=== PATIENT | female | born 1980 | race Caucasian/White ===

== ENCOUNTER 2017-03-11 19:57 | Emergency (ER) | payer MEDICAID, OTHER ==
--- NOTE | 2017-03-11 20:08 | EDM.PDOC ---
ED HPI GENERAL MEDICAL PROBLEM - General Chief Complaint: Lower Extremity Injury/Pain Stated Complaint: PAIN RT FOOT/LEG Time Seen by Provider: 03/11/17 20:01 - History of Present Illness INITIAL COMMENTS - FREE TEXT/NARRATIVE: HISTORY AND PHYSICAL: History of present illness: Patient 36-year-old female presents with concern of right foot injury this occurred when a toy was dropped on it by child she denies other trauma or concern Review of systems: As per history of present illness and below otherwise all systems reviewed and negative. Past medical history: As per history of present illness and as reviewed below otherwise noncontributory. Surgical history: As per history of present illness and as reviewed below otherwise noncontributory. Social history: No reported history of drug or alcohol abuse. Family history: As per history of present illness and as reviewed below otherwise noncontributory. Physical exam: HEENT: Atraumatic, normocephalic, pupils reactive, negative for conjunctival pallor or scleral icterus, mucous membranes moist, throat clear, neck supple, nontender, trachea midline. Lungs: Clear to auscultation, breath sounds equal bilaterally, chest nontender. Heart: S1S2, regular, negative for clicks, rubs, or JVD. Abdomen: Soft, nondistended, nontender. Negative for masses or hepatosplenomegaly. Negative for costovertebral tenderness. Pelvis: Stable nontender. Genitourinary: Deferred. Rectal: Deferred. Extremities: Small ecchymosis and tenderness on the dorsal aspect of her right foot noted no crepitation point tenderness CMS neurovascular is unremarkable Neuro: Awake, alert, oriented. Cranial nerves II through XII unremarkable. Cerebellum unremarkable. Motor and sensory unremarkable throughout. Exam nonfocal. Diagnostics: X-ray right foot Therapeutics: None Impression: #1 acute injury right foot (blunt force trauma) Definitive disposition and diagnosis as appropriate pending reevaluation and review of above. Right Feet Pain Score (Numeric/FACES): 6 - Related Data Allergies Allergy/AdvReac Type Severity Reaction Status Date / Time ciprofloxacin [From Cipro] Allergy Other Verified 12/03/14 13:27 ciprofloxacin HCl Allergy Other Verified 12/03/14 13:27 [From Cipro] hydrocodone Allergy Nausea and Verified 12/03/14 13:27 Vomiting lithium [[place]] Allergy Nausea and Verified 12/03/14 13:27 Vomiting lurasidone HCl [From Latuda] Allergy Nausea and Verified 12/03/14 13:27 Vomiting Sulfa (Sulfonamide Allergy Nausea and Verified 12/03/14 13:27 Antibiotics) Vomiting Home Meds: Home Meds QUEtiapine [SEROquel] 50 mg PO DAILY 03/22/14 [History] Ibuprofen [Advil] 1 cap PO Q4H PRN 02/08/15 [History] Colesevelam HCl [Welchol] 625 mg PO DAILY 03/11/17 [History] DULoxetine [Cymbalta] 60 mg PO DAILY 03/11/17 [History] LORazepam 1 mg PO DAILY PRN 03/11/17 [History] Lisdexamfetamine Dimesylate [Vyvanse] 60 mg PO DAILY 03/11/17 [History] Past Medical History - Past Surgical History Other GI Surgeries/Procedures: spleenectomy. pauly fundiplication. d and c with thermal ablation. surgery done 02/03/15 Social & Family History - Tobacco Use Smoking Status *Q: Current Every Day Smoker Years of Tobacco use: 18 Used Tobacco, but Quit: No Second Hand Smoke Exposure: No - Alcohol Use Days Per Week of Alcohol Use: 0 - Recreational Drug Use Recreational Drug Use: No Drug Use in Last 12 Months: No Recreational Drug Type: Reports: Marijuana/Hashish Recreational Drug Use Frequency: Rarely Recreational Drug Last Use: 3 1/2 years Review of Systems - Review of Systems Review Of Systems: ROS reveals no pertinent complaints other than HPI. ED EXAM, GENERAL - Physical Exam Exam: See Below (See dictation) Course - Vital Signs Last Recorded V/S: Last Vital Signs Temp 36.8 C 03/11/17 20:00 Pulse 100 03/11/17 20:00 Resp 19 03/11/17 20:00 BP 110/60 03/11/17 20:00 Pulse Ox 99 03/11/17 20:00 Departure - Departure Time of Disposition: 20:07 Disposition: Home, Self-Care 01 Condition: Good Clinical Impression: Foot injury - Discharge Information Forms: ED Department Discharge Additional Instructions: The following information is given to patients seen in the emergency department who are being discharged to home. This information is to outline your options for follow-up care. We provide all patients seen in our emergency department with a follow-up referral. The need for follow-up, as well as the timing and circumstances, are variable depending upon the specifics of your emergency department visit. If you don't have a primary care physician on staff, we will provide you with a referral. We always advise you to contact your personal physician following an emergency department visit to inform them of the circumstance of the visit and for follow-up with them and/or the need for any referrals to a consulting specialist. The emergency department will also refer you to a specialist when appropriate. This referral assures that you have the opportunity for followup care with a specialist. All of these measure are taken in an effort to provide you with optimal care, which includes your followup. Under all circumstances we always encourage you to contact your private physician who remains a resource for coordinating your care. When calling for followup care, please make the office aware that this follow-up is from your recent emergency room visit. If for any reason you are refused follow-up, please contact the [facility] emergency department at and asked to speak to the emergency department charge nurse. Tylenol/Motrin as directed follow up primary medical doctor 1-2 days return as needed as discussed
[2017-03-11 21:09] VITALS: BP 111/67
--- NOTE | 2017-03-12 13:53 | CR ---
EXAM DATE: 03/11/17 PATIENT'S AGE: 36 Patient: YEE MARLEY Facility: [place], [place] Site . Site : 1980 Study: XRay Extremity Right [id number]/9/2017 8:42:41 PM Ordering Physician: Victorina Hancock Final Report: INDICATION: Trauma. Pain. TECHNIQUE: Two views of the right foot. FINDINGS: There is no evidence for acute fracture, dislocation, erosion, or intrinsic skeletal lesions. IMPRESSION: Negative right foot. Dictated by Los Dave MD @ 03/11/2017 9:10:43 PM Dictated by: Los Dave MD @ 03/11/2017 21:10:51 (Electronic Signature) Report Signed by Proxy. NIKA
== END 2017-03-11 21:12 | disposition home or self-care (01) ==
LOC: MW.ED 19:57
DX: S90.31XA Contusion of right foot, initial encounter (principal); W20.8XXA Other cause of strike by thrown, projected or falling object, initial encounter; Z88.1 Allergy status to other antibiotic agents; Z88.2 Allergy status to sulfonamides; Z88.8 Allergy status to other drugs, medicaments and biological substances; Z88.5 Allergy status to narcotic agent; Z79.899 Other long term (current) drug therapy; F17.210 Nicotine dependence, cigarettes, uncomplicated; Z98.890 Other specified postprocedural states
CPT/HCPCS: 73620-26-RT; 73620-RT; 99282; 99283

== ENCOUNTER 2017-05-03 23:22 | Observation (INO) | payer MEDICAID ==
[2017-05-03] MEDS ORDERED: Sodium Chloride 0.9% 1,000 ML IV ONE (23:32)
--- NOTE | 2017-05-03 23:34 | EDM.PDOC ---
ED HPI GENERAL MEDICAL PROBLEM - General Stated Complaint: TOOK PILLS Time Seen by Provider: 05/03/17 23:33 Source of Information: Reports: Patient, EMS - History of Present Illness INITIAL COMMENTS - FREE TEXT/NARRATIVE: HISTORY AND PHYSICAL: History of present illness: []Patient presents by ambulance after taking 700 mg of Seroquel, this was a miss dosing as patient thought she was taking 25 mg tablets which would be consistent with the usual dose for her however she took 100 mg tablets 7 of them she presents very drowsy but able to be aroused Glascow coma scale is 15 but patient is very groggy after the medication on arrival she was tachycardic 129 December 11 of / she states this is her generally her usual blood pressure however blood pressure has come up with a fluid bolus 200/61 and fluids running at 125 currently patient is stable remains tired No fever nausea vomiting chills sweats no chest pain shortness of breath headache dizziness palpitation no bowel or urine symptoms she denies suicidal homicidal ideation Review of systems: As per history of present illness and below otherwise all systems reviewed and negative. Past medical history: As per history of present illness and as reviewed below otherwise noncontributory. Surgical history: As per history of present illness and as reviewed below otherwise noncontributory. Social history: No reported history of drug or alcohol abuse. Family history: As per history of present illness and as reviewed below otherwise noncontributory. Physical exam: HEENT: Atraumatic, normocephalic, pupils reactive, negative for conjunctival pallor or scleral icterus, mucous membranes moist, throat clear, neck supple, nontender, trachea midline. Lungs: Clear to auscultation, breath sounds equal bilaterally, chest nontender. Heart: S1S2, regular, negative for clicks, rubs, or JVD. Abdomen: Soft, nondistended, nontender. Negative for masses or hepatosplenomegaly. Negative for costovertebral tenderness. Pelvis: Stable nontender. Genitourinary: Deferred. Rectal: Deferred. Extremities: Atraumatic, negative for cords or calf pain. Neurovascular unremarkable. Neuro: Awake, alert, oriented. Cranial nerves II through XII unremarkable. Cerebellum unremarkable. Motor and sensory unremarkable throughout. Exam nonfocal. Diagnostics: []Lab as below EKG Chest 1 view Therapeutics: []Liter normal saline bolus Poison control called they had no concern or recommendation Patient admitted to Dr. da silva due to somnolence and medication effect Impression: []Hyportension-resolved Medication overdose Urine pending at time of admission patient admitted for observation with Dr. Morin Definitive disposition and diagnosis as appropriate pending reevaluation and review of above. - Related Data Allergies Allergy/AdvReac Type Severity Reaction Status Date / Time ciprofloxacin [From Cipro] Allergy Other Verified 05/03/17 23:37 ciprofloxacin HCl Allergy Other Verified 05/03/17 23:37 [From Cipro] hydrocodone Allergy Nausea and Verified 05/03/17 23:37 Vomiting hydromorphone Allergy Nausea and Verified 05/03/17 23:37 Vomiting lithium [[place]] Allergy Nausea and Verified 05/03/17 23:37 Vomiting lurasidone HCl [From Latuda] Allergy Nausea and Verified 05/03/17 23:37 Vomiting Sulfa (Sulfonamide Allergy Nausea and Verified 05/03/17 23:37 Antibiotics) Vomiting sumatriptan [From Imitrex] Allergy Nausea and Verified 05/03/17 23:37 Vomiting Home Meds: Home Meds QUEtiapine [SEROquel] 25 mg PO DAILY 03/22/14 [History] Ibuprofen [Advil] 1 cap PO Q4H PRN 02/08/15 [History] Colesevelam HCl [Welchol] 625 mg PO DAILY 03/11/17 [History] DULoxetine [Cymbalta] 60 mg PO DAILY 03/11/17 [History] LORazepam 1 mg PO DAILY PRN 03/11/17 [History] Lisdexamfetamine Dimesylate [Vyvanse] 60 mg PO DAILY 03/11/17 [History] Past Medical History HEENT History: Reports: None Respiratory History: Reports: Asthma Gastrointestinal History: Reports: None Psychiatric History: Reports: Anxiety, Bipolar - Infectious Disease History Infectious Disease History: Reports: Chicken Pox - Past Surgical History Other GI Surgeries/Procedures: spleenectomy. pauly fundiplication. d and c with thermal ablation. surgery done 02/03/15 Social & Family History - Family History Family Medical History: Noncontributory - Tobacco Use Smoking Status *Q: Current Every Day Smoker Years of Tobacco use: 18 Packs/Tins Daily: 0.5 Used Tobacco, but Quit: No Second Hand Smoke Exposure: No - Caffeine Use Caffeine Use: Reports: Coffee Caffeine Use Comment: 64 ounces/day - Alcohol Use Days Per Week of Alcohol Use: 0 - Recreational Drug Use Recreational Drug Use: No Drug Use in Last 12 Months: No Recreational Drug Type: Reports: Marijuana/Hashish Recreational Drug Use Frequency: Rarely Recreational Drug Last Use: 3 1/2 years ED ROS GENERAL - Review of Systems Review Of Systems: ROS reveals no pertinent complaints other than HPI. ED EXAM, GENERAL - Physical Exam Exam: See Below Course - Vital Signs Last Recorded V/S: Last Vital Signs Temp 36.1 C 05/03/17 23:37 Pulse 97 05/03/17 23:37 Resp 14 05/03/17 23:37 BP 101/64 05/03/17 23:37 Pulse Ox 97 05/03/17 23:37 - Orders/Labs/Meds Orders: Active Orders 24 hr Category Date Time Status EKG Documentation Completion [RC] STAT Care 05/03/17 23:32 Active Chest 1V Frontal [CR] Stat Exams 05/03/17 23:32 Taken DRUG SCREEN, URINE [URCHEM] Stat Lab 05/03/17 23:31 Uncollected UA W/MICROSCOPIC [URIN] Stat Lab 05/03/17 23:31 Uncollected Sodium Chloride 0.9% [Normal Saline] 1,000 ml Med 05/04/17 01:00 Active IV STAT Medication Orders Sodium Chloride (Normal Saline) 1,000 mls @ 125 mls/hr IV STAT PARUL Labs: Laboratory Tests 05/03/17 05/03/17 Range/Units 23:41 23:41 WBC 12.43 H (4.0-11.0) K/uL RBC 3.76 L (4.30-5.90) M/uL Hgb 11.5 L (12.0-16.0) g/dL Hct 33.4 L (36.0-46.0) % MCV 88.8 (80.0-98.0) fL MCH 30.6 (27.0-32.0) pg MCHC 34.4 (31.0-37.0) g/dL RDW Std Deviation 45.5 (28.0-62.0) fl RDW Coeff of Yahir 14 (11.0-15.0) % Plt Count 433 H (150-400) K/uL MPV 9.90 (7.40-12.00) fL Neut % (Auto) 55.4 (48.0-80.0) % Lymph % (Auto) 30.0 (16.0-40.0) % [place] % (Auto) 11.7 (0.0-15.0) % Eos % (Auto) 2.7 (0.0-7.0) % Baso % (Auto) 0.2 (0.0-1.5) % Neut # (Auto) 6.9 H (1.4-5.7) K/uL Lymph # (Auto) 3.7 H (0.6-2.4) K/uL [place] # (Auto) 1.5 H (0.0-0.8) K/uL Eos # (Auto) 0.3 (0.0-0.7) K/uL Baso # (Auto) 0.0 (0.0-0.1) K/uL Nucleated RBC % 0.0 /100WBC Nucleated RBCs # 0 K/uL Sodium 139 (136-146) mmol/L Potassium 3.3 L (3.5-5.1) mmol/L Chloride 109 (98-110) mmol/L Carbon Dioxide 22 (21-31) mmol/L BUN 7 (6.0-23.0) mg/dL Creatinine 0.7 (0.6-1.5) mg/dL Est Cr Clr Drug Dosing 83.93 mL/min Estimated GFR (MDRD) > 60.0 ml/min Glucose 114 H (60-110) mg/dL Calcium 8.9 (8.8-10.8) mg/dL Total Bilirubin 0.3 (0.1-1.5) mg/dL AST 10 (5-40) IU/L ALT 8 (8-54) IU/L Alkaline Phosphatase 116 (40-150) Total Protein 6.4 (6.0-8.0) g/dL Albumin 3.6 (3.5-5.0) g/dL Globulin 2.8 (2.0-3.5) g/dL Albumin/Globulin Ratio 1.3 (1.3-2.8) TSH 3rd Generation 2.71 (0.47-5.0) uIU/mL Salicylates < 5.0 (0-20) mg/dL Acetaminophen < 3.0 ug/mL Ethyl Alcohol < 10.0 mg/dL Meds: Medications Generic Name Dose Route Start Last Admin Trade Name Freq PRN Reason Stop Dose Admin Sodium Chloride 1,000 mls @ 125 mls/hr 05/04/17 01:00 Normal Saline IV STAT PARUL Discontinued Medications Generic Name Dose Route Start Last Admin Trade Name Samson PRN Reason Stop Dose Admin Albuterol/Ipratropium Confirm 05/04/17 00:10 Duoneb 3.0-0.5 Mg/3 Ml Administered 05/04/17 00:11 Dose 3 ml .ROUTE .STK-MED ONE Sodium Chloride 1,000 mls @ 999 mls/hr 05/03/17 23:32 05/03/17 23:50 Normal Saline IV 05/04/17 00:32 999 mls/hr STAT ONE Administration Departure - Departure Time of Disposition: 01:09 Disposition: Refer to Observation Condition: Fair Clinical Impression: Accidental medication overdose - Discharge Information - My Orders Last 24 Hours: My Active Orders 05/03/17 23:31 DRUG SCREEN, URINE [URCHEM] Stat UA W/MICROSCOPIC [URIN] Stat 05/03/17 23:32 EKG Documentation Completion [RC] STAT Chest 1V Frontal [CR] Stat 05/04/17 01:00 Sodium Chloride 0.9% [Normal Saline] 1,000 ml IV STAT - Assessment/Plan Last 24 Hours: My Active Orders 05/03/17 23:31 DRUG SCREEN, URINE [URCHEM] Stat UA W/MICROSCOPIC [URIN] Stat 05/03/17 23:32 EKG Documentation Completion [RC] STAT Chest 1V Frontal [CR] Stat 05/04/17 01:00 Sodium Chloride 0.9% [Normal Saline] 1,000 ml IV STAT
[2017-05-04] MEDS ORDERED: Albuterol/Ipratropium 3.0-0.5 MG/3 ML Neb Soln ONE (00:10)
[2017-05-04 00:33] LABS: ACETAMINOPHEN < 3.0 ug/mL; CHLORIDE,CL 109 mmol/L (98-110); SODIUM,NA 139 mmol/L (136-146)
[2017-05-04] MEDS: Sodium Chloride 0.9% 1,000 ML IV SCH ×2 (01:19→09:10)
[2017-05-04] MEDS ORDERED: Sodium Chloride 0.9% 1,000 ML IV SCH (02:30)
--- NOTE | 2017-05-04 09:44 | CR ---
EXAM DATE: 05/04/17 PATIENT'S AGE: 36 Patient: YEE COHEN Facility: [place], [place] Site . Site : 1980 Study: XRay Chest [id number]/1/2017 12:15:22 AM Ordering Physician: Mikal Baca Final Report: INDICATION: Shortness of breath, chest pain. Accidental overdose. TECHNIQUE: Chest radiograph 1 view COMPARISON: 12/03/2014. FINDINGS: Cardiovascular and mediastinum: The heart silhouette is normal in size and morphology. The mediastinum is normal in appearance. Lungs and pleural spaces: Both lungs are unremarkable in appearance. No sign of pleural effusion seen. No pneumothorax is identified. Bones and soft tissues: Surgical clips project in the left upper abdomen. IMPRESSION: 1. No acute cardiopulmonary disease is seen. Dictated by Rk Burton MD @ 05/04/2017 12:19:15 AM Dictated by: Rk Burton MD @ 05/04/2017 00:19:20 (Electronic Signature) Report Signed by Proxy. MOHAWK VALLEY HEALTH SYSTEMCarlin
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
[2017-05-04] MEDS ORDERED: Acetaminophen 325 MG Tab PO ONE (13:20)
[2017-05-04 16:16] VITALS: BP 96/66
== END 2017-05-04 15:35 | disposition home or self-care (01) ==
LOC: MW.ED 23:22 → MW.MS 05-04 01:10
PROVIDERS: ADMIT Internal Medicine; ATTEND Internal Medicine
DX: T43.591A Poisoning by other antipsychotics and neuroleptics, accidental (unintentional), initial encounter (principal); F31.9 Bipolar disorder, unspecified; F41.9 Anxiety disorder, unspecified; J45.909 Unspecified asthma, uncomplicated; G35 Multiple sclerosis; E89.0 Postprocedural hypothyroidism; F17.210 Nicotine dependence, cigarettes, uncomplicated; Z88.1 Allergy status to other antibiotic agents; Z88.2 Allergy status to sulfonamides; Z88.5 Allergy status to narcotic agent; Z88.8 Allergy status to other drugs, medicaments and biological substances; Z79.899 Other long term (current) drug therapy; Z90.81 Acquired absence of spleen
CPT/HCPCS: 36415; 71010; 80053; 80305; 81001; 84443; 85025; 93005; 96360; 96361; 99285; A9270; G0378; G0480; J7040; 99283

== ENCOUNTER 2019-01-01 19:50 | Emergency (ER) | payer SELFPAY ==
[2019-01-01] MEDS ORDERED: Albuterol/Ipratropium 3.0-0.5 MG/3 ML Neb Soln NEB ONE (20:40)
[2019-01-01] MEDS ORDERED: methylPREDNISolone Sodium Succinate 125 MG/2 ML SDV IM ONE (20:40)
[2019-01-01 21:01] LABS: CHLORIDE,CL 104 mmol/L (98-107); SODIUM,NA 137 mmol/L (136-145)
[2019-01-01] MEDS ORDERED: Levofloxacin 500 MG Tab PO ONE (21:42)
--- NOTE | 2019-01-01 21:42 | EDM.PDOC ---
ED HPI GENERAL MEDICAL PROBLEM - General Chief Complaint: Respiratory Problem Stated Complaint: COUGHING AND CONGESTION Time Seen by Provider: 01/01/19 21:42 Source of Information: Reports: Patient - History of Present Illness INITIAL COMMENTS - FREE TEXT/NARRATIVE: HISTORY AND PHYSICAL: History of present illness: [Patient with long smoking history presents with sinus pain and pressure nasal discharge and secondary complaint of dysuria and flank pain in the right flank pain 1 out of 10 nonradiating no nausea vomiting Patient complains of subjective fever and chills sweats or diaphoresis no chest pain or shortness of breath breathing is nonlabored and can speak clearly in full sentences ] Review of systems: As per history of present illness and below otherwise all systems reviewed and negative. Past medical history: As per history of present illness and as reviewed below otherwise noncontributory. Surgical history: As per history of present illness and as reviewed below otherwise noncontributory. Social history: No reported history of drug or alcohol abuse. Family history: As per history of present illness and as reviewed below otherwise noncontributory. Physical exam: HEENT: Atraumatic, normocephalic, pupils reactive, negative for conjunctival pallor or scleral icterus, mucous membranes moist, throat clear, neck supple, nontender, trachea midline. Anus pain left greater than right maxillary sinus Lungs: Clear to auscultation, breath sounds equal bilaterally, chest nontender. Heart: S1S2, regular, negative for clicks, rubs, or JVD. Abdomen: Soft, nondistended, nontender. Negative for masses or hepatosplenomegaly. Negative for costovertebral tenderness. Pelvis: Stable nontender. Genitourinary: Deferred. Rectal: Deferred. Extremities: Atraumatic, negative for cords or calf pain. Neurovascular unremarkable. Neuro: Awake, alert, oriented. Cranial nerves II through XII unremarkable. Cerebellum unremarkable. Motor and sensory unremarkable throughout. Exam nonfocal. Diagnostics: [TBC CMP UA Chest 2 views ] Therapeutics: [DuoNeb Solu-Medrol 125 IM Levaquin 500 by mouth daily #10 no refill HFA Medrol Dosepak ] Impression: []sinusitis Bronchitis UTI Definitive disposition and diagnosis as appropriate pending reevaluation and review of above. chest with breathing/coughing Pain Score (Numeric/FACES): 7 - Related Data Allergies Allergy/AdvReac Type Severity Reaction Status Date / Time ciprofloxacin [From Cipro] Allergy Other Verified 01/01/19 20:00 ciprofloxacin HCl Allergy Other Verified 01/01/19 20:00 [From Cipro] hydrocodone Allergy Nausea and Verified 01/01/19 20:00 Vomiting hydromorphone Allergy Nausea and Verified 01/01/19 20:00 Vomiting lithium [[place]] Allergy Nausea and Verified 01/01/19 20:00 Vomiting lurasidone HCl [From Latuda] Allergy Nausea and Verified 01/01/19 20:00 Vomiting Sulfa (Sulfonamide Allergy Nausea and Verified 01/01/19 20:00 Antibiotics) Vomiting sumatriptan [From Imitrex] Allergy Nausea and Verified 01/01/19 20:00 Vomiting Home Meds: Home Meds Ibuprofen [Advil] 1 cap PO Q4H PRN 02/08/15 [History] Escitalopram [Lexapro] 10 mg PO DAILY 01/01/19 [History] lamoTRIgine [Lamictal] 100 mg PO BEDTIME 01/01/19 [History] Past Medical History HEENT History: Reports: None Cardiovascular History: Reports: None Respiratory History: Reports: Asthma Gastrointestinal History: 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 pauly fundiplication. d and c with thermal ablation. 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 Recreational Drug Use Frequency: Daily - Living Situation & Occupation Living situation: Reports: with Significant Other ED ROS GENERAL - Review of Systems Review Of Systems: See Below ED EXAM, GENERAL - Physical Exam Exam: See Below Course - Vital Signs Last Recorded V/S: Last Vital Signs Temp 97.9 F 01/01/19 19:57 Pulse 121 H 01/01/19 19:57 Resp 20 01/01/19 19:57 BP 107/65 01/01/19 19:57 Pulse Ox 95 01/01/19 21:00 - Orders/Labs/Meds Orders: Active Orders 24 hr Category Date Time Status RT Aerosol Therapy [RC] ASDIRECTED Care 01/01/19 20:40 Active Chest 1V Frontal [CR] Stat Exams 01/01/19 20:38 Taken CULTURE BLOOD [BC] Stat Lab 01/01/19 21:13 Received CULTURE BLOOD [BC] Stat Lab 01/01/19 21:13 Received CULTURE URINE [RM] Stat Lab 01/01/19 20:20 Received Blood Culture x2 Reflex Set [OM.PC] Stat Oth 01/01/19 20:38 Ordered Labs: Laboratory Tests 01/01/19 01/01/19 01/01/19 Range/Units 20:20 20:20 20:28 WBC 12.19 H (4.0-11.0) K/uL RBC 3.94 L (4.30-5.90) M/uL Hgb 11.9 L (12.0-16.0) g/dL Hct 36.6 (36.0-46.0) % MCV 92.9 (80.0-98.0) fL MCH 30.2 (27.0-32.0) pg MCHC 32.5 (31.0-37.0) g/dL RDW Std Deviation 47.9 (28.0-62.0) fl RDW Coeff of Yahir 14 (11.0-15.0) % Plt Count 417 H (150-400) K/uL MPV 9.70 (7.40-12.00) fL Neut % (Auto) 66.5 (48.0-80.0) % Lymph % (Auto) 19.3 (16.0-40.0) % Ray % (Auto) 12.5 (0.0-15.0) % Eos % (Auto) 1.5 (0.0-7.0) % Baso % (Auto) 0.2 (0.0-1.5) % Neut # (Auto) 8.1 H (1.4-5.7) K/uL Lymph # (Auto) 2.4 (0.6-2.4) K/uL Ray # (Auto) 1.5 H (0.0-0.8) K/uL Eos # (Auto) 0.2 (0.0-0.7) K/uL Baso # (Auto) 0.0 (0.0-0.1) K/uL Nucleated RBC % 0.0 /100WBC Nucleated RBCs # 0 K/uL Lactate (0.20-2.00) mmol/L Sodium (136-145) mmol/L Potassium (3.5-5.1) mmol/L Chloride (98-107) mmol/L Carbon Dioxide (21.0-32.0) mmol/L BUN (7.0-18.0) mg/dL Creatinine (0.6-1.0) mg/dL Est Cr Clr Drug Dosing mL/min Estimated GFR (MDRD) ml/min Glucose (74-106) mg/dL Calcium (8.5-10.1) mg/dL Total Bilirubin (0.2-1.0) mg/dL AST (15-37) IU/L ALT (14-63) IU/L Alkaline Phosphatase (46-116) U/L Total Protein (6.4-8.2) g/dL Albumin (3.4-5.0) g/dL Globulin (2.6-4.0) g/dL Albumin/Globulin Ratio (0.9-1.6) Urine Color ORANGE Urine Appearance CLOUDY Urine pH 6.5 (5.0-8.0) Ur Specific [place] 1.020 (1.001-1.035) Urine Protein >=300 H (NEGATIVE) mg/dL Urine Glucose (UA) 500 H (NEGATIVE) mg/dL Urine Ketones 15 H (NEGATIVE) mg/dL Urine Occult Blood TRACE-INTACT H (NEGATIVE) Urine Nitrite POSITIVE H (NEGATIVE) Urine Bilirubin SMALL H (NEGATIVE) Urine Ictotest POSITIVE Urine Urobilinogen >=8.0 H (<2.0) EU/dL Ur Leukocyte Esterase MODERATE H (NEGATIVE) Urine RBC 0-3 (0-2/HPF) Urine WBC 28-35 (0-5/HPF) Ur Squamous Epith Cells FEW Urine Bacteria 3+ H (NEGATIVE) Urine Mucus LIGHT (NONE-MOD) Urine HCG, Qual NEGATIVE (NEGATIVE) 01/01/19 01/01/19 Range/Units 20:28 20:38 WBC (4.0-11.0) K/uL RBC (4.30-5.90) M/uL Hgb (12.0-16.0) g/dL Hct (36.0-46.0) % MCV (80.0-98.0) fL MCH (27.0-32.0) pg MCHC (31.0-37.0) g/dL RDW Std Deviation (28.0-62.0) fl RDW Coeff of Yahir (11.0-15.0) % Plt Count (150-400) K/uL MPV (7.40-12.00) fL Neut % (Auto) (48.0-80.0) % Lymph % (Auto) (16.0-40.0) % Ray % (Auto) (0.0-15.0) % Eos % (Auto) (0.0-7.0) % Baso % (Auto) (0.0-1.5) % Neut # (Auto) (1.4-5.7) K/uL Lymph # (Auto) (0.6-2.4) K/uL Ray # (Auto) (0.0-0.8) K/uL Eos # (Auto) (0.0-0.7) K/uL Baso # (Auto) (0.0-0.1) K/uL Nucleated RBC % /100WBC Nucleated RBCs # K/uL Lactate 1.2 (0.20-2.00) mmol/L Sodium 137 (136-145) mmol/L Potassium 3.6 (3.5-5.1) mmol/L Chloride 104 (98-107) mmol/L Carbon Dioxide 24.5 (21.0-32.0) mmol/L BUN 10 (7.0-18.0) mg/dL Creatinine 0.8 (0.6-1.0) mg/dL Est Cr Clr Drug Dosing 71.95 mL/min Estimated GFR (MDRD) > 60.0 ml/min Glucose 109 H (74-106) mg/dL Calcium 8.7 (8.5-10.1) mg/dL Total Bilirubin 0.2 (0.2-1.0) mg/dL AST 10 L (15-37) IU/L ALT 10 L (14-63) IU/L Alkaline Phosphatase 95 (46-116) U/L Total Protein 6.8 (6.4-8.2) g/dL Albumin 3.0 L (3.4-5.0) g/dL Globulin 3.8 (2.6-4.0) g/dL Albumin/Globulin Ratio 0.8 L (0.9-1.6) Urine Color Urine Appearance Urine pH (5.0-8.0) Ur Specific [place] (1.001-1.035) Urine Protein (NEGATIVE) mg/dL Urine Glucose (UA) (NEGATIVE) mg/dL Urine Ketones (NEGATIVE) mg/dL Urine Occult Blood (NEGATIVE) Urine Nitrite (NEGATIVE) Urine Bilirubin (NEGATIVE) Urine Ictotest Urine Urobilinogen (<2.0) EU/dL Ur Leukocyte Esterase (NEGATIVE) Urine RBC (0-2/HPF) Urine WBC (0-5/HPF) Ur Squamous Epith Cells Urine Bacteria (NEGATIVE) Urine Mucus (NONE-MOD) Urine HCG, Qual (NEGATIVE) Meds: Medications Discontinued Medications Generic Name Dose Route Start Last Admin Trade Name Freq PRN Reason Stop Dose Admin Albuterol/Ipratropium 3 ml 01/01/19 20:40 01/01/19 21:00 Duoneb 3.0-0.5 Mg/3 Ml NEB 01/01/19 20:41 3 ml ONETIME ONE Administration Levofloxacin 500 mg 01/01/19 21:42 Levaquin PO 01/01/19 21:43 ONETIME ONE Methylprednisolone Sodium Succinate 125 mg 01/01/19 20:40 01/01/19 20:52 Solu-Medrol IM 01/01/19 20:41 125 mg ONETIME ONE Administration Departure - Departure Time of Disposition: 21:48 Disposition: Home, Self-Care 01 Condition: Good Clinical Impression: Sinusitis, Acute bronchiolitis, UTI (urinary tract infection) - Discharge Information Referrals: Ranjeet,Anna A, CHEMIC MANGLER [Primary Care Provider] - Forms: ED Department Discharge Additional Instructions: The following information is given to patients seen in the emergency department who are being discharged to home. This information is to outline your options for follow-up care. We provide all patients seen in our emergency department with a follow-up referral. The need for follow-up, as well as the timing and circumstances, are variable depending upon the specifics of your emergency department visit. If you don't have a primary care physician on staff, we will provide you with a referral. We always advise you to contact your personal physician following an emergency department visit to inform them of the circumstance of the visit and for follow-up with them and/or the need for any referrals to a consulting specialist. The emergency department will also refer you to a specialist when appropriate. This referral assures that you have the opportunity for follow-up care with a specialist. All of these measure are taken in an effort to provide you with optimal care, which includes your follow-up. Under all circumstances we always encourage you to contact your private physician who remains a resource for coordinating your care. When calling for follow-up care, please make the office aware that this follow-up is from your recent emergency room visit. If for any reason you are refused follow-up, please contact the [facility] emergency department at and asked to speak to the emergency department charge nurse. - My Orders Last 24 Hours: My Active Orders 01/01/19 20:38 Chest 1V Frontal [CR] Stat Blood Culture x2 Reflex Set [OM.PC] Stat 01/01/19 20:40 RT Aerosol Therapy [RC] ASDIRECTED 01/01/19 21:13 CULTURE BLOOD [BC] Stat CULTURE BLOOD [BC] Stat - Assessment/Plan Last 24 Hours: My Active Orders 01/01/19 20:38 Chest 1V Frontal [CR] Stat Blood Culture x2 Reflex Set [OM.PC] Stat 01/01/19 20:40 RT Aerosol Therapy [RC] ASDIRECTED 01/01/19 21:13 CULTURE BLOOD [BC] Stat CULTURE BLOOD [BC] Stat
[2019-01-01 21:57] VITALS: BP 97/65
--- NOTE | 2019-01-01 22:26 | CR ---
INDICATION: Cough for 1 week. COMPARISON: 05/04/2017 FINDINGS: An erect single view of the chest was obtained at 21 28 hours. The lungs remain clear. No focal or diffuse infiltrates are present. The heart remains normal in size. The mediastinum is normal in appearance. The osseous structures are normal in appearance for the patient`s age. Again seen are a few surgical clips in the left upper quadrant. IMPRESSION: Normal chest single view. Dictated by Fred Foster MD @ Jan 01 2019 10:23PM Signed by Dr. Fred Foster @ Jan 01 2019 10:25PM
== END 2019-01-01 21:57 | disposition home or self-care (01) ==
LOC: MW.ED 19:50
DX: J21.9 Acute bronchiolitis, unspecified (principal); J40 Bronchitis, not specified as acute or chronic; J32.9 Chronic sinusitis, unspecified; N39.0 Urinary tract infection, site not specified; F41.9 Anxiety disorder, unspecified; F17.210 Nicotine dependence, cigarettes, uncomplicated; Z88.1 Allergy status to other antibiotic agents; Z88.6 Allergy status to analgesic agent; Z88.2 Allergy status to sulfonamides; Z88.8 Allergy status to other drugs, medicaments and biological substances; Z79.899 Other long term (current) drug therapy
CPT/HCPCS: 36415; 71045; 80053; 81001; 81025; 83605; 85025; 87040; 87086; 87088; 87186; 94640; 96372; 99284; A9270; J2930; J7620-GY

== ENCOUNTER 2019-05-19 16:03 | Emergency (ER) | payer SELFPAY ==
[2019-05-19] MEDS ORDERED: Metoclopramide 10 MG/2 ML SDV IV ONE (16:33)
[2019-05-19] MEDS ORDERED: Ketorolac 30 MG/ML SDV IVPUSH ONE (16:33)
[2019-05-19] MEDS ORDERED: diphenhydrAMINE 50 MG/ML SDV IVPUSH ONE (16:33)
[2019-05-19] MEDS ORDERED: Ondansetron 4 MG/2 ML SDV IVPUSH ONE (16:33)
[2019-05-19] MEDS ORDERED: Sodium Chloride 0.9% 1,000 ML IV ONE (16:33)
[2019-05-19 16:36] VITALS: BP 103/67; PULSE 84
--- NOTE | 2019-05-19 16:41 | EDM.PDOC ---
ED HPI GENERAL MEDICAL PROBLEM - General Chief Complaint: Headache Stated Complaint: HEADACHE Time Seen by Provider: 05/19/19 16:06 Source of Information: Reports: Patient History Limitations: Reports: No Limitations - History of Present Illness INITIAL COMMENTS - FREE TEXT/NARRATIVE: HISTORY AND PHYSICAL: History of present illness: Patient is a 38-year-old female, with a known history of migraines, who presents to the ED today for a migraine x 4 days. Patient states she is allergic to Imitrex but has been tried for her past migraines so does not have a rescue medication on board. Patient states she's tried [id number] Excedrin without relief of symptoms. Patient states her migraine today is typical of her usual migraines involving photosensitivity and slight nausea. Patient denies any change from her typical migraine and denies any other associative symptoms. Patient denies fever, chills, chest pain, shortness of breath, or cough. Denies neck stiff ness, change in vision, syncope, or near syncope. Denies vomiting, abdominal pain, diarrhea, constipation, or dysuria. Has not noted any blood in urine or stool. Patient has been eating and drinking appropriately. Review of systems: As per history of present illness and below otherwise all systems reviewed and negative. Past medical history: As per history of present illness and as reviewed below otherwise noncontributory. Surgical history: As per history of present illness and as reviewed below otherwise noncontributory. Social history: See social history for further information Family history: As per history of present illness and as reviewed below otherwise noncontributory. Physical exam: General: Patient is alert, oriented, and in no acute distress. Patient laying comfortably on exam table. HEENT: Atraumatic, normocephalic, pupils equal and reactive bilaterally, negative for conjunctival pallor or scleral icterus, mucous membranes moist, TMs normal bilaterally, throat clear, neck supple, nontender, trachea midline. No drooling or trismus noted. No meningeal signs. No hot potato voice noted. Lungs: Clear to auscultation, breath sounds equal bilaterally, chest nontender. Heart: S1S2, regular rate and rhythm without overt murmur Abdomen: Soft, nondistended, nontender. Negative for masses or hepatosplenomegaly. Negative for costovertebral tenderness. Pelvis: Stable nontender. Genitourinary: Deferred. Rectal: Deferred. Skin: Intact, warm, dry. No lesions or rashes noted. Extremities: Atraumatic, negative for cords or calf pain. Neurovascular unremarkable. Neuro: Awake, alert, oriented. Cranial nerves II through XII unremarkable. Cerebellum unremarkable. Motor and sensory unremarkable throughout. Exam nonfocal. Notes: Patient expresses resolution of her migraine today in the ED with therapeutics. Discussed the importance for follow-up with her primary care provider or neurologist. Voices understanding and is agreeable to plan of care. Denies any further questions or concerns at this time. Diagnostics: None Therapeutics: Saline, Toradol, Zofran, Benadryl, Reglan Prescription: None Impression: Headache, resolved H/O migraine disorder Plan: 1. Encourage small but frequent sips of fluid to prevent dehydration. 2. You can alternate ibuprofen and Tylenol as directed for pain and discomfort. 3. Follow up with her primary care provider or neurologist as discussed. Return to the ED as needed and as discussed. Definitive disposition and diagnosis as appropriate pending reevaluation and review of above. Headache Pain Score (Numeric/FACES): 10 - Related Data Allergies Allergy/AdvReac Type Severity Reaction Status Date / Time ciprofloxacin [From Cipro] Allergy Other Verified 05/19/19 16:30 ciprofloxacin HCl Allergy Other Verified 05/19/19 16:30 [From Cipro] hydrocodone Allergy Nausea and Verified 05/19/19 16:30 Vomiting hydromorphone Allergy Nausea and Verified 05/19/19 16:30 Vomiting lithium [[place]] Allergy Nausea and Verified 05/19/19 16:30 Vomiting lurasidone HCl [From Latuda] Allergy Nausea and Verified 05/19/19 16:30 Vomiting Sulfa (Sulfonamide Allergy Nausea and Verified 05/19/19 16:30 Antibiotics) Vomiting sumatriptan [From Imitrex] Allergy Nausea and Verified 05/19/19 16:30 Vomiting Home Meds: Home Meds Escitalopram [Lexapro] 10 mg PO DAILY 01/01/19 [History] lamoTRIgine [Lamictal] 100 mg PO BEDTIME 01/01/19 [History] Past Medical History HEENT History: Reports: None Cardiovascular History: Reports: None Respiratory History: Reports: Asthma Gastrointestinal History: 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 pauly fundiplication. d and c with thermal ablation. surgery done 02/03/15 Female Surgical History: Reports: Section Social & Family History - Family History Family Medical History: Noncontributory - Caffeine Use Caffeine Use: Reports: Coffee, Energy Drinks, Soda, Tea Caffeine Use Comment: 64 ounces/day - Living Situation & Occupation Living situation: Reports: with Significant Other ED ROS GENERAL - Review of Systems Review Of Systems: ROS reveals no pertinent complaints other than HPI. ED EXAM, GENERAL - Physical Exam Exam: See Below (See dictation) Course - Vital Signs Last Recorded V/S: Last Vital Signs Temp 36.6 C 05/19/19 16:31 Pulse 84 05/19/19 16:31 Resp 18 05/19/19 16:31 BP 103/67 05/19/19 16:31 Pulse Ox 98 05/19/19 16:31 - Orders/Labs/Meds Orders: Active Orders 24 hr Category Date Time Status EKG Documentation Completion [RC] STAT Care 05/19/19 16:34 Active Sodium Chloride 0.9% [Normal Saline] 1,000 ml Med 05/19/19 16:33 Active IV STAT Medication Orders Sodium Chloride (Normal Saline) 1,000 mls @ 999 mls/hr IV STAT ONE Stop: 05/19/19 17:33 Last Admin: 05/19/19 16:59 Dose: 999 mls/hr Meds: Medications Generic Name Dose Route Start Last Admin Trade Name Freq PRN Reason Stop Dose Admin Sodium Chloride 1,000 mls @ 999 mls/hr 05/19/19 16:33 05/19/19 16:59 Normal Saline IV 05/19/19 17:33 999 mls/hr STAT ONE Administration Discontinued Medications Generic Name Dose Route Start Last Admin Trade Name Freq PRN Reason Stop Dose Admin Diphenhydramine HCl 50 mg 05/19/19 16:33 09/16/19 17:02 Benadryl IVPUSH 05/19/19 16:34 50 mg ONETIME ONE Administration Ketorolac Tromethamine 30 mg 05/19/19 16:33 05/19/19 17:01 Toradol IVPUSH 05/19/19 16:34 30 mg ONETIME ONE Administration Metoclopramide HCl 10 mg 05/19/19 16:33 05/19/19 17:03 Reglan IV 05/19/19 16:34 10 mg ONETIME ONE Administration Ondansetron HCl 4 mg 05/19/19 16:33 05/19/19 16:59 Zofran IVPUSH 05/19/19 16:34 4 mg ONETIME ONE Administration Departure - Departure Time of Disposition: 17:31 Disposition: Home, Self-Care 01 Clinical Impression: History of migraine Headache Qualifiers: Headache type: unspecified Headache chronicity pattern: acute headache Intractability: not intractable Qualified Code(s): R51 - Headache - Discharge Information Referrals: PCP,None [Primary Care Provider] - Forms: ED Department Discharge Additional Instructions: The following information is given to patients seen in the emergency department who are being discharged to home. This information is to outline your options for follow-up care. We provide all patients seen in our emergency department with a follow-up referral. The need for follow-up, as well as the timing and circumstances, are variable depending upon the specifics of your emergency department visit. If you don't have a primary care physician on staff, we will provide you with a referral. We always advise you to contact your personal physician following an emergency department visit to inform them of the circumstance of the visit and for follow-up with them and/or the need for any referrals to a consulting specialist. The emergency department will also refer you to a specialist when appropriate. This referral assures that you have the opportunity for follow-up care with a specialist. All of these measure are taken in an effort to provide you with optimal care, which includes your follow-up. Under all circumstances we always encourage you to contact your private physician who remains a resource for coordinating your care. When calling for follow-up care, please make the office aware that this follow-up is from your recent emergency room visit. If for any reason you are refused follow-up, please contact the [facility] Emergency Department at and asked to speak to the emergency department charge nurse. LAILA [facility] [address] [place] [address] [facility] [address] [place] [address] [facility] - Neurology Professional Building [address] [facility], [address] [place] [address] 1. Encourage small but frequent sips of fluid to prevent dehydration. 2. You can alternate ibuprofen and Tylenol as directed for pain and discomfort. 3. Follow up with her primary care provider or neurologist as discussed. Return to the ED as needed and as discussed. - My Orders Last 24 Hours: My Active Orders 05/19/19 16:33 Sodium Chloride 0.9% [Normal Saline] 1,000 ml IV STAT 05/19/19 16:34 EKG Documentation Completion [RC] STAT - Assessment/Plan Last 24 Hours: My Active Orders 05/19/19 16:33 Sodium Chloride 0.9% [Normal Saline] 1,000 ml IV STAT 05/19/19 16:34 EKG Documentation Completion [RC] STAT
== END 2019-05-19 17:56 | disposition home or self-care (01) ==
LOC: MW.ED 16:03
DX: R51 Headache (principal); F41.9 Anxiety disorder, unspecified; Z88.5 Allergy status to narcotic agent; Z88.2 Allergy status to sulfonamides; Z88.1 Allergy status to other antibiotic agents; Z88.8 Allergy status to other drugs, medicaments and biological substances; Z79.899 Other long term (current) drug therapy
CPT/HCPCS: 93005; 96361; 96374; 96375; 99283; J1200; J1885; J2405; J2765; J7040

== ENCOUNTER 2019-07-08 11:50 | Emergency (ER) | payer SELFPAY ==
[2019-07-08] MEDS ORDERED: Ketorolac 30 MG/ML SDV IM ONE (12:01)
[2019-07-08 12:04] VITALS: BP 122/78; PULSE 81
--- NOTE | 2019-07-08 12:39 | EDM.PDOC ---
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 She also believes she may be . She denies any recent trauma,urinary incontinence , numbness or tingling, difficulty walking, no vaginal bleeding or abdominal cramping. Review of systems: As per history of present illness and below otherwise all systems reviewed and negative. Past medical history: As per history of present illness and as reviewed below otherwise noncontributory. Surgical history: As per history of present illness and as reviewed below otherwise noncontributory. Social history: No reported history of drug or alcohol abuse. Family history: As per history of present illness and as reviewed below otherwise noncontributory. Physical exam: General: Well developed, well nourished in NAD HEENT: Atraumatic, normocephalic, pupils reactive, negative for conjunctival pallor or scleral icterus, mucous membranes moist, throat clear, neck supple, nontender, trachea midline. Lungs: Clear to auscultation, breath sounds equal bilaterally, chest nontender. Heart: S1S2, regular, negative for clicks, rubs, or JVD. Abdomen: NABS, Soft, nondistended, nontender. Negative for masses or hepatosplenomegaly. Negative for costovertebral tenderness. Pelvis: Stable nontender. Genitourinary: Deferred. Rectal: Deferred. Extremities: Atraumatic, negative for cords or calf pain. Neurovascular unremarkable. Neuro: Awake, alert, oriented. Cranial nerves II through XII unremarkable. Cerebellum unremarkable. Motor and sensory unremarkable throughout. Exam nonfocal. straight leg raise negative, patellar and Achilles reflexes normal bilaterally equal, his great toes Skin:warm and dry Diagnostics: urine negative Therapeutics: declined pain meds ED Course: stable Impression: low back pain Prescriptions: none Plan: Take meds as directed, follow up with your primary care physician, return to ER if symptoms worsen or change. Definitive disposition and diagnosis as appropriate pending reevaluation and review of above. back Pain Score (Numeric/FACES): 6 - Related Data Allergies Allergy/AdvReac Type Severity Reaction Status Date / Time ciprofloxacin [From Cipro] Allergy Other Verified 07/08/19 12:02 ciprofloxacin HCl Allergy Other Verified 07/08/19 12:02 [From Cipro] hydrocodone Allergy Nausea and Verified 07/08/19 12:02 Vomiting hydromorphone Allergy Nausea and Verified 07/08/19 12:02 Vomiting lithium [[place]] Allergy Nausea and Verified 07/08/19 12:02 Vomiting lurasidone HCl [From Latuda] Allergy Nausea and Verified 07/08/19 12:02 Vomiting Sulfa (Sulfonamide Allergy Nausea and Verified 07/08/19 12:02 Antibiotics) Vomiting sumatriptan [From Imitrex] Allergy Nausea and Verified 07/08/19 12:02 Vomiting Home Meds: Home Meds . [No Known Home Meds] 07/08/19 [History] Past Medical History HEENT History: Reports: None Cardiovascular History: Reports: None Respiratory History: Reports: Asthma Gastrointestinal History: 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 pauly fundiplication. d and c with thermal ablation. surgery done 02/03/15 Female Surgical History: Reports: Section Social & Family History - Family History Family Medical History: Noncontributory - Tobacco Use Smoking Status *Q: Current Every Day Smoker Years of Tobacco use: 20 Packs/Tins Daily: 0.5 - Caffeine Use Caffeine Use: Reports: Coffee, Energy Drinks, Soda, Tea Caffeine Use Comment: 64 ounces/day - Recreational Drug Use Recreational Drug Use: Yes Drug Use in Last 12 Months: Yes Recreational Drug Type: Reports: Methamphetamine Recreational Drug Use Frequency: Not Used In Over 3 Months - Living Situation & Occupation Living situation: Reports: with Significant Other ED ROS GENERAL - Review of Systems Review Of Systems: See Below ED EXAM,LOWER BACK PAIN/INJURY - Physical Exam Exam: See Below Course - Vital Signs Last Recorded V/S: Last Vital Signs Temp 97.3 F 07/08/19 11:58 Pulse 81 07/08/19 11:58 Resp 18 07/08/19 11:58 BP 122/78 07/08/19 11:58 Pulse Ox 98 07/08/19 11:58 - Orders/Labs/Meds Labs: Laboratory Tests 07/08/19 07/08/19 Range/Units 11:55 11:55 Urine Color YELLOW Urine Appearance HAZY Urine pH 6.0 (5.0-8.0) Ur Specific [place] 1.020 (1.001-1.035) Urine Protein NEGATIVE (NEGATIVE) mg/dL Urine Glucose (UA) NEGATIVE (NEGATIVE) mg/dL Urine Ketones NEGATIVE (NEGATIVE) mg/dL Urine Occult Blood SMALL H (NEGATIVE) Urine Nitrite NEGATIVE (NEGATIVE) Urine Bilirubin NEGATIVE (NEGATIVE) Urine Urobilinogen 0.2 (<2.0) EU/dL Ur Leukocyte Esterase NEGATIVE (NEGATIVE) Urine RBC 0-2 (0-2/HPF) Urine WBC 0-2 (0-5/HPF) Ur Epithelial Cells FEW (NONE-FEW) Urine Bacteria FEW (NEGATIVE) Urine Trichomonas PRESENT (NEGATIVE) Urine Yeast FEW Urine HCG, Qual NEGATIVE (NEGATIVE) Meds: Medications Discontinued Medications Generic Name Dose Route Start Last Admin Trade Name Freq PRN Reason Stop Dose Admin Ketorolac Tromethamine 30 mg 07/08/19 12:01 07/08/19 12:13 Toradol IM 07/08/19 12:02 Not Given ONETIME ONE Departure - Departure Time of Disposition: 13:00 Disposition: Home, Self-Care 01 Condition: Good Clinical Impression: Low back pain Qualifiers: Chronicity: acute Back pain laterality: bilateral Sciatica presence: without sciatica Qualified Code(s): M54.5 - Low back pain - Discharge Information *PRESCRIPTION DRUG MONITORING PROGRAM REVIEWED*: Not Applicable *COPY OF PRESCRIPTION DRUG MONITORING REPORT IN PATIENT MELINA: Not Applicable Instructions: Acute Back Pain, Adult Referrals: PCP,None [Primary Care Provider] - Forms: ED Department Discharge Additional Instructions: The following information is given to patients seen in the emergency department who are being discharged to home. This information is to outline your options for follow-up care. We provide all patients seen in our emergency department with a follow-up referral. The need for follow-up, as well as the timing and circumstances, are variable depending upon the specifics of your emergency department visit. If you don't have a primary care physician on staff, we will provide you with a referral. We always advise you to contact your personal physician following an emergency department visit to inform them of the circumstance of the visit and for follow-up with them and/or the need for any referrals to a consulting specialist. The emergency department will also refer you to a specialist when appropriate. This referral assures that you have the opportunity for follow-up care with a specialist. All of these measure are taken in an effort to provide you with optimal care, which includes your follow-up. Under all circumstances we always encourage you to contact your private physician who remains a resource for coordinating your care. When calling for follow-up care, please make the office aware that this follow-up is from your recent emergency room visit. If for any reason you are refused follow-up, please contact the [facility] Emergency Department at and asked to speak to the emergency department charge nurse. Take meds as directed, follow up with your primary care physician, return to ER if symptoms worsen or change. [facility] [address] [place] [id number]
== END 2019-07-08 13:09 | disposition home or self-care (01) ==
LOC: MW.ED 11:50
DX: M54.5 Low back pain (principal); J45.909 Unspecified asthma, uncomplicated; F17.210 Nicotine dependence, cigarettes, uncomplicated; Z88.1 Allergy status to other antibiotic agents; Z88.2 Allergy status to sulfonamides; Z88.5 Allergy status to narcotic agent; Z88.8 Allergy status to other drugs, medicaments and biological substances
CPT/HCPCS: 81001; 81025; 99282; 99283

== ENCOUNTER 2019-09-12 22:40 | Emergency (ER) | payer SELFPAY ==
[2019-09-12 23:06] VITALS: BP 102/61; PULSE 89
--- NOTE | 2019-09-13 00:19 | EDM.PDOC ---
ED HPI GENERAL MEDICAL PROBLEM - General Chief Complaint: Fever Stated Complaint: FLU SYMPTOMS Time Seen by Provider: 09/13/19 00:10 Source of Information: Reports: Patient History Limitations: Reports: No Limitations - History of Present Illness INITIAL COMMENTS - FREE TEXT/NARRATIVE: 38-year-old female presents the emergency room with a chief complaint of fever, muscle aches, ear pain, joint pain. Symptoms have been lasting for the past 2 weeks Onset: Today Duration: Week(s): Location: Reports: Head, Neck, Back Quality: Reports: Ache Severity: Mild Improves with: Reports: None Worsens with: Reports: None Associated Symptoms: Reports: No Other Symptoms, Cough, Headaches body ache Pain Score (Numeric/FACES): 8 - Related Data Allergies Allergy/AdvReac Type Severity Reaction Status Date / Time ciprofloxacin [From Cipro] Allergy Other Verified 09/12/19 23:01 ciprofloxacin HCl Allergy Other Verified 09/12/19 23:01 [From Cipro] hydrocodone Allergy Nausea and Verified 09/12/19 23:01 Vomiting hydromorphone Allergy Nausea and Verified 09/12/19 23:01 Vomiting lithium [[place]] Allergy Nausea and Verified 09/12/19 23:01 Vomiting lurasidone HCl [From Latuda] Allergy Nausea and Verified 09/12/19 23:01 Vomiting Sulfa (Sulfonamide Allergy Nausea and Verified 09/12/19 23:01 Antibiotics) Vomiting sumatriptan [From Imitrex] Allergy Nausea and Verified 09/12/19 23:01 Vomiting Home Meds: Home Meds Escitalopram Oxalate [Lexapro] 20 mg PO DAILY 09/12/19 [History] lamoTRIgine [Lamictal] 100 mg PO DAILY 09/12/19 [History] Past Medical History HEENT History: Reports: None Cardiovascular History: Reports: None Respiratory History: Reports: Asthma Gastrointestinal History: Reports: None Genitourinary History: Reports: None 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 Neurological History: Reports: None Psychiatric History: Reports: Anxiety, Other (See Below) Other Psychiatric History: Borderline Personality Disorder Endocrine/Metabolic History: Reports: Other (See Below) Other Endocrine/Metabolic History: Thyroidectomy Insulin Pump Model and Education Dean: None Hematologic History: Reports: None Immunologic History: Reports: None Oncologic (Cancer) History: Reports: None Dermatologic History: Reports: None - Infectious Disease History Infectious Disease History: Reports: None - Past Surgical History Head Surgeries/Procedures: Reports: None Other GI Surgeries/Procedures: 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 pauly fundiplication. d and c with thermal ablation. surgery done 02/03/15 Female Surgical History: Reports: Section Social & Family History - Family History Family Medical History: Noncontributory - Tobacco Use Smoking Status *Q: Current Every Day Smoker Years of Tobacco use: 20 Packs/Tins Daily: 1 - Caffeine Use Caffeine Use: Reports: Coffee, Soda Caffeine Use Comment: 64 ounces/day - Recreational Drug Use Recreational Drug Use: Yes Drug Use in Last 12 Months: Yes - Living Situation & Occupation Living situation: Reports: with Significant Other ED ROS ENT - Review of Systems Review Of Systems: Comprehensive ROS is negative, except as noted in HPI. Constitutional: Reports: No Symptoms, Fever, Chills, Malaise, Weakness HEENT: Reports: No Symptoms Respiratory: Reports: No Symptoms Cardiovascular: Reports: No Symptoms Endocrine: Reports: No Symptoms GI/Abdominal: Reports: No Symptoms : Reports: No Symptoms Musculoskeletal: Reports: No Symptoms Skin: Reports: No Symptoms Neurological: Reports: No Symptoms Psychiatric: Reports: No Symptoms Hematologic/Lymphatic: Reports: No Symptoms Immunologic: Reports: No Symptoms ED EXAM, ENT - Physical Exam Exam: See Below Exam Limited By: No Limitations General Appearance: Alert, WD/WN, No Apparent Distress Eye Exam: Bilateral Eye: PERRL Ears: Normal External Exam, Normal Canal, Hearing Grossly Normal, Normal TMs Nose: Normal Inspection, Normal Mucousa, No Blood Mouth/Throat: Normal Inspection, Normal Gums. No: Normal Teeth Head: Atraumatic, Normocephalic Neck: Normal Inspection, Supple, Non-Tender Respiratory/Chest: No Respiratory Distress, Lungs Clear, No Accessory Muscle Use , Chest Non-Tender Cardiovascular: Normal Peripheral Pulses, Regular Rate, Rhythm, No JVD, No Murmur GI/Abdominal: Normal Bowel Sounds, Soft, Non-Tender, No Distention, No Abnormal Bruit (Female) Exam: Deferred Rectal (Female) Exam: Deferred Back: Normal Inspection, Full Range of Motion Extremities: Normal Inspection, Normal Range of Motion, No Pedal Edema, Normal Capillary Refill Neurological: Alert, Oriented, CN II-XII Intact, Normal Reflexes, No Motor/ Sensory Deficits Psychiatric: Normal Affect, Normal Mood Skin: Warm, Dry, Intact, Normal Color, No Rash Course - Vital Signs Last Recorded V/S: Last Vital Signs Temp 98.4 F 09/12/19 23:00 Pulse 89 09/12/19 23:00 Resp 18 09/12/19 23:00 BP 102/61 09/12/19 23:00 Pulse Ox 100 09/12/19 23:00 Departure - Departure Time of Disposition: 00:18 Disposition: Home, Self-Care 01 Condition: Good Clinical Impression: Viral syndrome - Discharge Information Instructions: Viral Illness, Adult Referrals: PCP,None [Primary Care Provider] - Sepsis Event Note - Evaluation Sepsis Screening Result: No Definite Risk - Focused Exam Vital Signs: Vital Signs Temp Pulse Resp BP Pulse Ox 09/12/19 23:00 98.4 F 89 18 102/61 100 Date Exam was Performed: 09/13/19 Time Exam was Performed: 00:14
== END 2019-09-13 00:36 | disposition home or self-care (01) ==
LOC: MW.ED 22:40
DX: B34.9 Viral infection, unspecified (principal); F17.210 Nicotine dependence, cigarettes, uncomplicated; Z88.8 Allergy status to other drugs, medicaments and biological substances; Z88.1 Allergy status to other antibiotic agents; Z88.5 Allergy status to narcotic agent; Z88.2 Allergy status to sulfonamides
CPT/HCPCS: 87804; 99283

== ENCOUNTER 2020-04-05 23:54 | Emergency (ER) | payer SELFPAY ==
--- NOTE | 2020-04-06 00:18 | EDM.PDOC ---
ED HPI GENERAL MEDICAL PROBLEM - General Chief Complaint: Upper Extremity Injury/Pain Stated Complaint: TENDINITIS IN RIGHT HAND Time Seen by Provider: 04/06/20 00:00 - History of Present Illness INITIAL COMMENTS - FREE TEXT/NARRATIVE: History of present illness: [] Review of systems: As per history of present illness and below otherwise all systems reviewed and negative. Past medical history: As per history of present illness and as reviewed below otherwise noncontributory. Surgical history: As per history of present illness and as reviewed below otherwise noncontributory. Social history: No reported history of drug or alcohol abuse. Family history: As per history of present illness and as reviewed below otherwise noncontributory. Physical exam: Constitutional - well developed, well-nourished and in no acute distress HEENT - normocephalic, no evidence of trauma - external nose and mouth normal - no mass in neck and no JVD - mucosae moist EYES - full EOM, PERRL, no icterus - no evidence of inflammation, injection, or drainage Respiratory - no respiratory distress, equal bilateral expansion Vascular-color and capillary refill intact in the digits of the right upper extremity Musculoskeletal range of motion of the digits of the right upper extremity only slightly limited on complete flexion because of pain. No gross deformity of long bones or joints - no tenderness, swelling or edema Tinel sign negative at the ulnar in the elbow and at the median nerve in the wrist Neurologic -and sensory exam completely intact in the median ulnar radial distribution of the right upper extremity. 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 1st, 2nd, 3rd digits R hand Pain Score (Numeric/FACES): 8 - Related Data Allergies Allergy/AdvReac Type Severity Reaction Status Date / Time ciprofloxacin [From Cipro] Allergy Other Verified 04/06/20 00:08 ciprofloxacin HCl Allergy Other Verified 04/06/20 00:08 [From Cipro] hydrocodone Allergy Nausea and Verified 04/06/20 00:08 Vomiting hydromorphone Allergy Nausea and Verified 04/06/20 00:08 Vomiting lithium [[place]] Allergy Nausea and Verified 04/06/20 00:08 Vomiting lurasidone HCl [From Latuda] Allergy Nausea and Verified 04/06/20 00:08 Vomiting Sulfa (Sulfonamide Allergy Nausea and Verified 04/06/20 00:08 Antibiotics) Vomiting sumatriptan [From Imitrex] Allergy Nausea and Verified 04/06/20 00:08 Vomiting Home Meds: Home Meds Escitalopram Oxalate [Lexapro] 20 mg PO DAILY 09/12/19 [History] lamoTRIgine [Lamictal] 100 mg PO DAILY 09/12/19 [History] Naproxen [Naprosyn] 500 mg PO Q12HR #20 tab 09/13/19 [Rx] methylPREDNISolone [Medrol Dose Pack] 4 mg PO DAILY #21 tab 04/06/20 [Rx] Past Medical History HEENT History: Reports: None Cardiovascular History: Reports: None Respiratory History: Reports: Asthma Gastrointestinal History: Reports: None Genitourinary History: Reports: None MENTAL HEALTH CASE 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 Neurological History: Reports: None Psychiatric History: Reports: Anxiety, Other (See Below) Other Psychiatric History: Borderline Personality Disorder Endocrine/Metabolic History: Reports: Other (See Below) Other Endocrine/Metabolic History: Thyroidectomy Insulin Pump Model and Piping Design Specialist: None Hematologic History: Reports: None Immunologic History: Reports: None Oncologic (Cancer) History: Reports: None Dermatologic History: Reports: None - Infectious Disease History Infectious Disease History: Reports: None - Past Surgical History Head Surgeries/Procedures: Reports: None Other GI Surgeries/Procedures: 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 pauly fundiplication. d and c with thermal ablation. surgery done 02/03/15 Female Surgical History: Reports: Section Social & Family History - Family History Family Medical History: Noncontributory - Caffeine Use Caffeine Use: Reports: Coffee, Soda Caffeine Use Comment: 64 ounces/day - Living Situation & Occupation Living situation: Reports: with Significant Other Review of Systems - Review of Systems Review Of Systems: Comprehensive ROS is negative, except as noted in HPI. 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 This information is to outline your options for follow-up care. We provide all patients seen in our emergency department with a follow-up referral. The need for follow-up, as well as the timing and circumstances, are variable depending upon the specifics of your emergency department visit. If you don't have a primary care physician on staff, we will provide you with a referral. We always advise you to contact your personal physician following an emergency department visit to inform them of the circumstance of the visit and for follow-up with them and/or the need for any referrals to a consulting specialist. The emergency department will also refer you to a specialist when appropriate. This referral assures that you have the opportunity for follow-up care with a specialist. All of these measure are taken in an effort to provide you with optimal care, which includes your follow-up. Under all circumstances we always encourage you to contact your private physician who remains a resource for coordinating your care. When calling for follow-up care, please make the office aware that this follow-up is from your recent emergency room visit. If for any reason you are refused follow-up, please contact the [facility] Emergency Department at and asked to speak to the emergency department charge nurse. [facility] [address] [place] [id number] [facility] [address] [place] [address] Sepsis Event Note (ED) - Evaluation Sepsis Screening Result: No Definite Risk - Focused Exam Vital Signs: Vital Signs Temp Pulse Resp BP Pulse Ox 04/05/20 23:58 97.6 F 92 18 98/68 99
[2020-04-06 00:37] VITALS: BP 96/61; PULSE 83
== END 2020-04-06 00:24 | disposition home or self-care (01) ==
LOC: MW.ED 23:54
DX: S54.01XA Injury of ulnar nerve at forearm level, right arm, initial encounter (principal); J45.909 Unspecified asthma, uncomplicated; G71.00 Muscular dystrophy, unspecified; F41.9 Anxiety disorder, unspecified; Z88.1 Allergy status to other antibiotic agents; Z88.5 Allergy status to narcotic agent; Z88.2 Allergy status to sulfonamides; Z88.8 Allergy status to other drugs, medicaments and biological substances; Z79.899 Other long term (current) drug therapy; X58.XXXA Exposure to other specified factors, initial encounter
CPT/HCPCS: 99283

== ENCOUNTER 2020-11-04 12:12 | Observation (INO) | payer SELFPAY ==
--- NOTE | 2020-11-04 12:39 | EDM.PDOC ---
<Yosvany Garcia - Last Filed: 11/04/20 18:45> ED HPI GENERAL MEDICAL PROBLEM - General Chief Complaint: Abdominal Pain Stated Complaint: ABD PAIN Time Seen by Provider: 11/04/20 12:18 Source of Information: Reports: Patient History Limitations: Reports: No Limitations - History of Present Illness INITIAL COMMENTS - FREE TEXT/NARRATIVE: 40-year-old female with history of hiatal hernia, , splenectomy, cholecystectomy, Tom fundoplication, ITP presents with abdominal pain. Abdominal pain is localized in the periumbilical region, constant for 4 days, currently rated 6/10, nonradiating, no alleviating or exacerbating factors, sharp. She denies fever, chills, vomiting, diarrhea, dysuria. She admits to feeling nauseous. ROS: A 10-point review of systems, other than pertinent positives and negatives as stated per HPI, is otherwise negative Past medical history: No additional pertinent history Past Surgical history: No additional pertinent history Social history: No additional pertinent history Family history: No additional pertinent history PHYSICAL EXAM General: AOx4, GCS = 15, moderate distress HEENT: dry mucous membrane Neck: supple, no meningismus, no Kernig or Brudzinski Cardiac: S1S2 RRR Respiratory: CTAB, no crackles or rales, no wheezing Abdomen: Soft, RLQ > periumbilical tenderness, no rebound or guarding, nondistended, no pulsatile mass. Back: nontender Musculoskeletal: NVI distally, no deformity Neuro: No focal deficits, CN 2 - 12 WNL. Abdominal Pain Score (Numeric/FACES): 10 - Related Data Allergies Allergy/AdvReac Type Severity Reaction Status Date / Time ciprofloxacin [From Cipro] Allergy Other Verified 11/04/20 23:49 ciprofloxacin HCl Allergy Other Verified 11/04/20 23:49 [From Cipro] hydrocodone Allergy Nausea and Verified 11/04/20 23:49 Vomiting hydromorphone Allergy Nausea and Verified 11/04/20 23:49 Vomiting lithium [[place]] Allergy Nausea and Verified 11/04/20 23:49 Vomiting lurasidone HCl [From Latuda] Allergy Nausea and Verified 11/04/20 23:49 Vomiting Sulfa (Sulfonamide Allergy Nausea and Verified 11/04/20 23:49 Antibiotics) Vomiting sumatriptan [From Imitrex] Allergy Nausea and Verified 11/04/20 23:49 Vomiting Home Meds: Home Meds Escitalopram Oxalate [Lexapro] 20 mg PO DAILY 09/12/19 [History] lamoTRIgine [Lamictal] 150 mg PO BEDTIME 09/12/19 [History] methylPREDNISolone [Medrol Dose Pack] 4 mg PO DAILY #21 tab 04/06/20 [Rx] Naproxen [Naprosyn] 500 mg PO Q12HR PRN 11/04/20 [History] Prazosin [Minpress] 1 mg PO BEDTIME 11/04/20 [History] hydrOXYzine HCL [Atarax] 50 mg PO QID 11/04/20 [History] Past Medical History HEENT History: Reports: None Cardiovascular History: Reports: None Respiratory History: Reports: Asthma Gastrointestinal History: Reports: None Genitourinary History: Reports: None 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 pauly fundiplication. d and c with thermal ablation. surgery done 02/03/15 Female Surgical History: Reports: Section Social & Family History - Family History Family Medical History: No Pertinent Family History - Caffeine Use Caffeine Use: Reports: Coffee, Soda Caffeine Use Comment: 64 ounces/day - Living Situation & Occupation Living situation: Reports: with Significant Other ED ROS GENERAL - Review of Systems Review Of Systems: See Below (see dictation) ED EXAM, GI/ABD - Physical Exam Exam: See Below (see dictation) Course - Re-Assessments/Exams Free Text/Narrative Re-Assessment/Exam: 11/04/20 15:36 I reassessed the patient, her pain improved slightly with morphine but returned, will reduce morphine 4 mg IV. Repeat abdominal exam demonstrates next mild te nderness at McBurney's point, will consult surgery. 11/04/20 15:[address] Brennon Olmos, will come and assess patient at bedside. 11/04/20 17:[address] Brennon Olmos to come assess the patient at bedside. Dr. Olmos is currently scrubbed in for an ER appendectomy at this time. Jose Guadalupe's pain worsened and will get redose morphine 4mg IV with IVF. 11/04/20 18:46 Dr. Brennon Olmos in the ER assessing patient. Departure - Departure Disposition: Refer to Observation Condition: Good Clinical Impression: Abdominal pain Qualifiers: Abdominal location: right lower quadrant Qualified Code(s): R10.31 - Right lower quadrant pain - Discharge Information *PRESCRIPTION DRUG MONITORING PROGRAM REVIEWED*: Not Applicable *COPY OF PRESCRIPTION DRUG MONITORING REPORT IN PATIENT MELINA: Not Applicable <Jose Caldera - Last Filed: 11/05/20 03:34> ED HPI GENERAL MEDICAL PROBLEM - History of Present Illness INITIAL COMMENTS - FREE TEXT/NARRATIVE: Patient was signed out to me by Dr. Garcia pending repeat CBC and possible admission versus operating room with Dr. Olmos At 7PM I did reevaluate the patient and at the time of my reevaluation the patient's blood pressure was noted to be 90s over 50s with a MAP of 63. The patient states that her normal blood pressure is 90 over 60s. Blood pressure at this time was 100s over 60s on repeat blood pressure. The patient was mentating appropriately. At this time she did have continued pain. However it was improved from prior. Labs reviewed which did reveal a CBC with a normocytic anemia with a hemoglobin of 11.9 and hematocrit of 35.2 with a WBC count of 9.38. INR was normal. Lactic acid was normal. CMP was normal. Lipase was normal. hCG was negative. Urine was negative. UDS was positive for opiates. Covid was negative. Imaging reviewed with a CT abdomen pelvis revealing no acute intra-abdominal p rocess. No evidence of diverticulitis, colitis, obstruction or appendicitis. Laboratory: Repeat CBC revealed a leukocytosis of 12.44 without left shift. Hemoglobin was now 10.8 and 32.2. After the repeat CBC I did contact the patient was taken to the operating room with surgeon for suspected acute appendicitis DISPOSITION: The patient was admitted for observation and taken to the operating room for suspected acute appendicitis CONDITION: Serious PROCEDURES: None FINAL IMPRESSION(S)/DIAGNOSES: 1. Acute abdominal pain, suspect acute appendicitis. Jose Caldera M.D. Course - Vital Signs Last Recorded V/S: Last Vital Signs Temp 36.9 C 11/04/20 22:08 Pulse 81 11/04/20 22:30 Resp 18 11/04/20 22:30 BP 105/71 11/04/20 22:30 Pulse Ox 96 11/04/20 22:30 - Orders/Labs/Meds Orders: Active Orders 24 hr Category Date Time Status Sodium Chloride 0.9% [Saline Flush] Med 11/04/20 12:53 Active 10 ml FLUSH ASDIRECTED PRN Sodium Chloride 0.9% [Saline Flush] Med 11/04/20 12:53 Active 2.5 ml FLUSH ASDIRECTED PRN Saline Lock Insert [OM.PC] Stat Oth 11/04/20 12:54 Ordered Medication Orders Lactated Ringer's (Ringers, Lactated) 1,000 mls @ 150 mls/hr IV ASDIRECTED PARUL Lactated Ringer's (Ringers, Lactated) 1,000 mls @ 125 mls/hr IV ASDIRECTED PARUL Last Admin: 11/05/20 01:35 Dose: 125 mls/hr Documented by: HARRIS Ketorolac Tromethamine (Toradol) 10 mg PO Q6H PARUL Stop: 11/09/20 22:31 Morphine Sulfate (Morphine) 3 mg IV Q6H PRN PRN Reason: Pain Ondansetron HCl (Zofran) 4 mg IVPUSH Q8H PRN PRN Reason: Nausea/Vomiting Last Admin: 11/05/20 01:38 Dose: 4 mg Documented by: HARRIS Oxycodone/Acetaminophen (Percocet 325-5 Mg) 1 tab PO Q6H PRN PRN Reason: Pain Last Admin: 11/04/20 23:43 Dose: 1 tab Documented by: VANESSA Sodium Chloride (Saline Flush) 10 ml FLUSH ASDIRECTED PRN PRN Reason: Keep Vein Open Last Admin: 11/04/20 13:27 Dose: 10 ml Documented by: HUGO Sodium Chloride (Saline Flush) 2.5 ml FLUSH ASDIRECTED PRN PRN Reason: Keep Vein Open Last Admin: 11/04/20 13:27 Dose: 2.5 ml Documented by: [id number] Labs: Laboratory Tests 11/04/20 11/04/20 11/04/20 Range/Units 13:20 13:20 13:20 WBC 9.38 (4.0-11.0) K/uL RBC 3.93 L (4.30-5.90) M/uL Hgb 11.9 L (12.0-16.0) g/dL Hct 35.2 L (36.0-46.0) % MCV 89.6 (80.0-98.0) fL MCH 30.3 (27.0-32.0) pg MCHC 33.8 (31.0-37.0) g/dL RDW Std Deviation 45.7 (28.0-62.0) fl RDW Coeff of Yahir 14 (11.0-15.0) % Plt Count 422 H (150-400) K/uL MPV 10.00 (7.40-12.00) fL Neut % (Auto) 59.9 (48.0-80.0) % Lymph % (Auto) 28.6 (16.0-40.0) % [place] % (Auto) 8.8 (0.0-15.0) % Eos % (Auto) 2.6 (0.0-7.0) % Baso % (Auto) 0.1 (0.0-1.5) % Neut # (Auto) 5.6 (1.4-5.7) K/uL Lymph # (Auto) 2.7 H (0.6-2.4) K/uL [place] # (Auto) 0.8 (0.0-0.8) K/uL Eos # (Auto) 0.2 (0.0-0.7) K/uL Baso # (Auto) 0.0 (0.0-0.1) K/uL Nucleated RBC % 0.0 /100WBC Nucleated RBCs # 0 K/uL INR Lactate 0.7 (0.20-2.00) mmol/L Sodium 140 (136-145) mmol/L Potassium 3.9 (3.5-5.1) mmol/L Chloride 105 (98-107) mmol/L Carbon Dioxide 23.8 (21.0-32.0) mmol/L BUN 16 (7.0-18.0) mg/dL Creatinine 0.8 (0.6-1.0) mg/dL Est Cr Clr Drug Dosing 70.54 mL/min Estimated GFR (MDRD) > 60.0 ml/min Glucose 89 (74-106) mg/dL Calcium 8.5 (8.5-10.1) mg/dL Total Bilirubin 0.4 (0.2-1.0) mg/dL AST 14 L (15-37) IU/L ALT 15 (14-63) IU/L Alkaline Phosphatase 80 (46-116) U/L Total Protein 7.2 (6.4-8.2) g/dL Albumin 3.7 (3.4-5.0) g/dL Globulin 3.5 (2.6-4.0) g/dL Albumin/Globulin Ratio 1.1 (0.9-1.6) Lipase 137 (73-393) U/L HCG, Qual (NEG) Urine Color Urine Appearance Urine pH (5.0-8.0) Ur Specific [place] (1.001-1.035) Urine Protein (NEGATIVE) mg/dL Urine Glucose (UA) (NEGATIVE) mg/dL Urine Ketones (NEGATIVE) mg/dL Urine Occult Blood (NEGATIVE) Urine Nitrite (NEGATIVE) Urine Bilirubin (NEGATIVE) Urine Urobilinogen (<2.0) EU/dL Ur Leukocyte Esterase (NEGATIVE) Urine HCG, Qual (NEGATIVE) Urine Opiates Screen (NEGATIVE) Ur Oxycodone Screen (NEGATIVE) Urine Methadone Screen (NEGATIVE) Ur Barbiturates Screen (NEGATIVE) Ur Phencyclidine Scrn (NEGATIVE) Ur Amphetamine Screen (NEGATIVE) U Methamphetamines Scrn (NEGATIVE) U Benzodiazepines Scrn (NEGATIVE) U Cocaine Metab Screen (NEGATIVE) U Marijuana (THC) Screen (NEGATIVE) SARS-CoV-2 RNA (RICH) (NEGATIVE) 03/04/21 03/04/21 03/04/21 Range/Units 13:20 13:20 14:00 WBC (4.0-11.0) K/uL RBC (4.30-5.90) M/uL Hgb (12.0-16.0) g/dL Hct (36.0-46.0) % MCV (80.0-98.0) fL MCH (27.0-32.0) pg MCHC (31.0-37.0) g/dL RDW Std Deviation (28.0-62.0) fl RDW Coeff of Yahir (11.0-15.0) % Plt Count (150-400) K/uL MPV (7.40-12.00) fL Neut % (Auto) (48.0-80.0) % Lymph % (Auto) (16.0-40.0) % [place] % (Auto) (0.0-15.0) % Eos % (Auto) (0.0-7.0) % Baso % (Auto) (0.0-1.5) % Neut # (Auto) (1.4-5.7) K/uL Lymph # (Auto) (0.6-2.4) K/uL [place] # (Auto) (0.0-0.8) K/uL Eos # (Auto) (0.0-0.7) K/uL Baso # (Auto) (0.0-0.1) K/uL Nucleated RBC % /100WBC Nucleated RBCs # K/uL INR 0.93 Lactate (0.20-2.00) mmol/L Sodium (136-145) mmol/L Potassium (3.5-5.1) mmol/L Chloride (98-107) mmol/L Carbon Dioxide (21.0-32.0) mmol/L BUN (7.0-18.0) mg/dL Creatinine (0.6-1.0) mg/dL Est Cr Clr Drug Dosing mL/min Estimated GFR (MDRD) ml/min Glucose (74-106) mg/dL Calcium (8.5-10.1) mg/dL Total Bilirubin (0.2-1.0) mg/dL AST (15-37) IU/L ALT (14-63) IU/L Alkaline Phosphatase (46-116) U/L Total Protein (6.4-8.2) g/dL Albumin (3.4-5.0) g/dL Globulin (2.6-4.0) g/dL Albumin/Globulin Ratio (0.9-1.6) Lipase (73-393) U/L HCG, Qual NEGATIVE (NEG) Urine Color Urine Appearance Urine pH (5.0-8.0) Ur Specific [place] (1.001-1.035) Urine Protein (NEGATIVE) mg/dL Urine Glucose (UA) (NEGATIVE) mg/dL Urine Ketones (NEGATIVE) mg/dL Urine Occult Blood (NEGATIVE) Urine Nitrite (NEGATIVE) Urine Bilirubin (NEGATIVE) Urine Urobilinogen (<2.0) EU/dL Ur Leukocyte Esterase (NEGATIVE) Urine HCG, Qual (NEGATIVE) Urine Opiates Screen POSITIVE (NEGATIVE) Ur Oxycodone Screen NEGATIVE (NEGATIVE) Urine Methadone Screen NEGATIVE (NEGATIVE) Ur Barbiturates Screen NEGATIVE (NEGATIVE) Ur Phencyclidine Scrn NEGATIVE (NEGATIVE) Ur Amphetamine Screen NEGATIVE (NEGATIVE) U Methamphetamines Scrn NEGATIVE (NEGATIVE) U Benzodiazepines Scrn NEGATIVE (NEGATIVE) U Cocaine Metab Screen NEGATIVE (NEGATIVE) U Marijuana (THC) Screen NEGATIVE (NEGATIVE) SARS-CoV-2 RNA (RICH) (NEGATIVE) 11/04/20 11/04/20 11/04/20 Range/Units 14:00 14:00 16:10 WBC (4.0-11.0) K/uL RBC (4.30-5.90) M/uL Hgb (12.0-16.0) g/dL Hct (36.0-46.0) % MCV (80.0-98.0) fL MCH (27.0-32.0) pg MCHC (31.0-37.0) g/dL RDW Std Deviation (28.0-62.0) fl RDW Coeff of Yahir (11.0-15.0) % Plt Count (150-400) K/uL MPV (7.40-12.00) fL Neut % (Auto) (48.0-80.0) % Lymph % (Auto) (16.0-40.0) % [place] % (Auto) (0.0-15.0) % Eos % (Auto) (0.0-7.0) % Baso % (Auto) (0.0-1.5) % Neut # (Auto) (1.4-5.7) K/uL Lymph # (Auto) (0.6-2.4) K/uL [place] # (Auto) (0.0-0.8) K/uL Eos # (Auto) (0.0-0.7) K/uL Baso # (Auto) (0.0-0.1) K/uL Nucleated RBC % /100WBC Nucleated RBCs # K/uL INR Lactate (0.20-2.00) mmol/L Sodium (136-145) mmol/L Potassium (3.5-5.1) mmol/L Chloride (98-107) mmol/L Carbon Dioxide (21.0-32.0) mmol/L BUN (7.0-18.0) mg/dL Creatinine (0.6-1.0) mg/dL Est Cr Clr Drug Dosing mL/min Estimated GFR (MDRD) ml/min Glucose (74-106) mg/dL Calcium (8.5-10.1) mg/dL Total Bilirubin (0.2-1.0) mg/dL AST (15-37) IU/L ALT (14-63) IU/L Alkaline Phosphatase (46-116) U/L Total Protein (6.4-8.2) g/dL Albumin (3.4-5.0) g/dL Globulin (2.6-4.0) g/dL Albumin/Globulin Ratio (0.9-1.6) Lipase (73-393) U/L HCG, Qual (NEG) Urine Color YELLOW Urine Appearance CLEAR Urine pH 5.5 (5.0-8.0) Ur Specific [place] 1.015 (1.001-1.035) Urine Protein NEGATIVE (NEGATIVE) mg/dL Urine Glucose (UA) NEGATIVE (NEGATIVE) mg/dL Urine Ketones NEGATIVE (NEGATIVE) mg/dL Urine Occult Blood NEGATIVE (NEGATIVE) Urine Nitrite NEGATIVE (NEGATIVE) Urine Bilirubin NEGATIVE (NEGATIVE) Urine Urobilinogen 0.2 (<2.0) EU/dL Ur Leukocyte Esterase NEGATIVE (NEGATIVE) Urine HCG, Qual NEGATIVE (NEGATIVE) Urine Opiates Screen (NEGATIVE) Ur Oxycodone Screen (NEGATIVE) Urine Methadone Screen (NEGATIVE) Ur Barbiturates Screen (NEGATIVE) Ur Phencyclidine Scrn (NEGATIVE) Ur Amphetamine Screen (NEGATIVE) U Methamphetamines Scrn (NEGATIVE) U Benzodiazepines Scrn (NEGATIVE) U Cocaine Metab Screen (NEGATIVE) U Marijuana (THC) Screen (NEGATIVE) SARS-CoV-2 RNA (RICH) NEGATIVE (NEGATIVE) 11/04/20 Range/Units 19:10 WBC 12.44 H (4.0-11.0) K/uL RBC 3.59 L (4.30-5.90) M/uL Hgb 10.8 L (12.0-16.0) g/dL Hct 32.2 L (36.0-46.0) % MCV 89.7 (80.0-98.0) fL MCH 30.1 (27.0-32.0) pg MCHC 33.5 (31.0-37.0) g/dL RDW Std Deviation 46.0 (28.0-62.0) fl RDW Coeff of Yahir 14 (11.0-15.0) % Plt Count 381 (150-400) K/uL MPV 9.70 (7.40-12.00) fL Neut % (Auto) 58.4 (48.0-80.0) % Lymph % (Auto) 29.8 (16.0-40.0) % [place] % (Auto) 10.4 (0.0-15.0) % Eos % (Auto) 1.2 (0.0-7.0) % Baso % (Auto) 0.2 (0.0-1.5) % Neut # (Auto) 7.3 H (1.4-5.7) K/uL Lymph # (Auto) 3.7 H (0.6-2.4) K/uL [place] # (Auto) 1.3 H (0.0-0.8) K/uL Eos # (Auto) 0.2 (0.0-0.7) K/uL Baso # (Auto) 0.0 (0.0-0.1) K/uL Nucleated RBC % 0.0 /100WBC Nucleated RBCs # 0 K/uL INR Lactate (0.20-2.00) mmol/L Sodium (136-145) mmol/L Potassium (3.5-5.1) mmol/L Chloride (98-107) mmol/L Carbon Dioxide (21.0-32.0) mmol/L BUN (7.0-18.0) mg/dL Creatinine (0.6-1.0) mg/dL Est Cr Clr Drug Dosing mL/min Estimated GFR (MDRD) ml/min Glucose (74-106) mg/dL Calcium (8.5-10.1) mg/dL Total Bilirubin (0.2-1.0) mg/dL AST (15-37) IU/L ALT (14-63) IU/L Alkaline Phosphatase (46-116) U/L Total Protein (6.4-8.2) g/dL Albumin (3.4-5.0) g/dL Globulin (2.6-4.0) g/dL Albumin/Globulin Ratio (0.9-1.6) Lipase (73-393) U/L HCG, Qual (NEG) Urine Color Urine Appearance Urine pH (5.0-8.0) Ur Specific [place] (1.001-1.035) Urine Protein (NEGATIVE) mg/dL Urine Glucose (UA) (NEGATIVE) mg/dL Urine Ketones (NEGATIVE) mg/dL Urine Occult Blood (NEGATIVE) Urine Nitrite (NEGATIVE) Urine Bilirubin (NEGATIVE) Urine Urobilinogen (<2.0) EU/dL Ur Leukocyte Esterase (NEGATIVE) Urine HCG, Qual (NEGATIVE) Urine Opiates Screen (NEGATIVE) Ur Oxycodone Screen (NEGATIVE) Urine Methadone Screen (NEGATIVE) Ur Barbiturates Screen (NEGATIVE) Ur Phencyclidine Scrn (NEGATIVE) Ur Amphetamine Screen (NEGATIVE) U Methamphetamines Scrn (NEGATIVE) U Benzodiazepines Scrn (NEGATIVE) U Cocaine Metab Screen (NEGATIVE) U Marijuana (THC) Screen (NEGATIVE) SARS-CoV-2 RNA (RICH) (NEGATIVE) Meds: Medications Generic Name Dose Route Start Last Admin Trade Name Freq PRN Reason Stop Dose Admin Lactated Ringer's 1,000 mls @ 150 mls/hr 11/04/20 19:45 Ringers, Lactated IV ASDIRECTED PARUL Lactated Ringer's 1,000 mls @ 125 mls/hr 11/04/20 22:15 11/05/20 01:35 Ringers, Lactated IV 125 mls/hr ASDIRECTED PARUL Administration Ketorolac Tromethamine 10 mg 11/04/20 22:30 Toradol PO 11/09/20 22:31 Q6H PARUL Morphine Sulfate 3 mg 11/04/20 22:14 Morphine IV Q6H PRN Pain Ondansetron HCl 4 mg 11/05/20 01:25 11/05/20 01:38 Zofran IVPUSH 4 mg Q8H PRN Administration Nausea/Vomiting Oxycodone/Acetaminophen 1 tab 11/04/20 22:14 11/04/20 23:43 Percocet 325-5 Mg PO 1 tab Q6H PRN Administration Pain Sodium Chloride 10 ml 11/04/20 12:53 11/04/20 13:27 Saline Flush FLUSH 10 ml ASDIRECTED PRN Administration Keep Vein Open Sodium Chloride 2.5 ml 11/04/20 12:53 11/04/20 13:27 Saline Flush FLUSH 2.5 ml ASDIRECTED PRN Administration Keep Vein Open Discontinued Medications Generic Name Dose Route Start Last Admin Trade Name Freq PRN Reason Stop Dose Admin Dexamethasone Confirm 11/04/20 19:44 Dexamethasone Administered 11/04/20 19:45 Dose 20 mg .ROUTE .STK-MED ONE Fentanyl Confirm 11/04/20 19:44 Sublimaze Administered 11/04/20 19:45 Dose 250 mcg .ROUTE .STK-MED ONE Glycopyrrolate Confirm 11/04/20 21:47 Robinul Administered 11/04/20 21:48 Dose 0.4 mg .ROUTE .STK-MED ONE Lactated Ringer's 1,000 mls @ 999 mls/hr 11/04/20 12:53 11/04/20 13:25 Ringers, Lactated IV 11/04/20 13:53 999 mls/hr .BOLUS ONE Administration Lactated Ringer's 1,000 mls @ 999 mls/hr 11/04/20 17:10 11/04/20 17:15 Ringers, Lactated IV 11/04/20 18:10 999 mls/hr .BOLUS ONE Administration Cefoxitin Sodium 2 gm/ Premix 50 mls @ 100 mls/hr 11/04/20 19:36 11/04/20 20:08 IV 11/04/20 20:05 100 mls/hr ONETIME ONE Administration Lactated Ringer's 1,000 mls @ 999 mls/hr 11/04/20 19:44 11/04/20 19:45 Ringers, Lactated IV 11/04/20 20:44 999 mls/hr .BOLUS ONE Administration Iopamidol 75 ml 11/04/20 14:58 11/04/20 14:59 Isovue Multipack-370 (76%) IVPUSH 11/04/20 14:59 75 ml ONETIME STA Administration Ketamine HCl Confirm 11/04/20 21:38 Ketalar Administered 11/04/20 21:39 Dose 500 mg .ROUTE .STK-MED ONE Ketorolac Tromethamine Confirm 11/04/20 21:51 Toradol Administered 11/04/20 21:52 Dose 30 mg .ROUTE .STK-MED ONE Lidocaine Confirm 11/04/20 19:44 Xylocaine-Mpf 2% Administered 11/04/20 19:45 Dose 5 ml .ROUTE .STK-MED ONE Midazolam HCl Confirm 11/04/20 19:44 Versed 1 Mg/Ml Administered 11/04/20 19:45 Dose 2 mg .ROUTE .STK-MED ONE Morphine Sulfate 4 mg 11/04/20 13:01 11/04/20 13:26 Morphine IVPUSH 11/04/20 13:02 4 mg ONETIME ONE Administration Morphine Sulfate 4 mg 11/04/20 15:22 11/04/20 15:28 Morphine IVPUSH 11/04/20 15:23 4 mg ONETIME ONE Administration Morphine Sulfate 4 mg 11/04/20 17:10 11/04/20 17:16 Morphine IVPUSH 11/04/20 17:11 4 mg ONETIME ONE Administration Ondansetron HCl 4 mg 11/04/20 12:53 11/04/20 13:26 Zofran IVPUSH 11/04/20 12:54 4 mg ONETIME ONE Administration Ondansetron HCl 4 mg 11/04/20 19:19 11/04/20 19:36 Zofran IVPUSH 11/04/20 19:20 4 mg ONETIME ONE Administration Ondansetron HCl Confirm 11/04/20 19:44 Zofran Administered 11/04/20 19:45 Dose 4 mg .ROUTE .STK-MED ONE Propofol Confirm 11/04/20 19:44 Diprivan 20 Ml Administered 11/04/20 19:45 Dose 200 mg .ROUTE .STK-MED ONE Rocuronium [place] Confirm 11/04/20 19:44 Rocuronium [place] Administered 11/04/20 19:45 Dose 50 mg .ROUTE .STK-MED ONE Departure - Departure Time of Disposition: 19:36 Condition: Fair Sepsis Event Note (ED) - Focused Exam Vital Signs: Vital Signs Temp Pulse Resp BP Pulse Ox 11/04/20 17:52 81 16 91/50 L 97 11/04/20 17:19 36.3 C 88 16 86/44 L 97
[2020-11-04] MEDS ORDERED: Lactated Ringers 1,000 ML IV ONE ×3 (12:53→19:44)
[2020-11-04] MEDS ORDERED: Sodium Chloride 0.9% 10 ML Syringe FLUSH PRN (12:53)
[2020-11-04] MEDS ORDERED: Ondansetron 4 MG/2 ML SDV IVPUSH ONE ×2 (12:53→19:19)
[2020-11-04] MEDS ORDERED: Sodium Chloride 0.9% 2.5 ML Syringe FLUSH PRN (12:53)
[2020-11-04] MEDS ORDERED: Morphine 4 MG/ML Syringe IVPUSH ONE ×3 (13:01→17:10)
[2020-11-04 14:17] LABS: BLOOD UREA NITROGEN,BUN 16 mg/dL (7.0-18.0); CARBON DIOXIDE,CO2 23.8 mmol/L (21.0-32.0); CHLORIDE,CL 105 mmol/L (98-107); GLUCOSE RANDOM 89 mg/dL (74-106); LIPASE 137 U/L (73-393); POTASSIUM,K 3.9 mmol/L (3.5-5.1); SODIUM,NA 140 mmol/L (136-145)
[2020-11-04] MEDS ORDERED: Iopamidol 755 MG/ML 500 ML Multipack Bottle IVPUSH STA (14:58)
--- NOTE | 2020-11-04 15:24 | CT ---
INDICATION: Diffuse periumbilical abdominal pain and COMPARISON: February 19, 2014 TECHNIQUE: CT examination of the abdomen and pelvis was performed following the uneventful intravenous administration of 75 cc of Isovue 370. Thin section axial images were obtained from the lung bases through the pubic symphysis. Oral contrast was not administered. Please note that all CT scans at this facility use dose modulation, iterative reconstruction, and/or weight-based dosing when appropriate to reduce radiation dose to as low as reasonably achievable. FINDINGS: LUNG BASES: No significant abnormality at the lung bases. Small hiatal hernia and surgical changes at the GE junction. Heart size normal at the lung bases. LIVER/BILIARY SYSTEM:No hepatic mass. Mild biliary ductal dilatation, intrahepatic. Prior cholecystectomy. No extrahepatic biliary ductal dilatation. Correlate with liver function tests. ADRENALS: Normal KIDNEYS, URETERS and BLADDER:The kidneys appear normal. No visible mass, calculus or hydronephrosis. The ureters and bladder as visualized appear normal. SPLEEN:Surgically absent spleen PANCREAS: Appears normal. RETROPERITONEUM and MESENTERY: There is no mass, adenopathy or aortic aneurysm. Minimal atherosclerotic vascular calcifications GASTROINTESTINAL SYSTEM: There is mild fecal retention. There is no evidence of mechanical obstruction or diverticulitis. There is diverticulosis. There is no evidence of appendicitis. The appendix is seen as a normal structure in the right lower quadrant on axial images number 122 through 130 PELVIS: No mass, adenopathy or free fluid. OSSEOUS STRUCTURES and ABDOMINAL WALL: There is an age-appropriate appearance of the osseous structures.No significant abdominal wall defect. OTHER: No free fluid or free air. IMPRESSION: 1. No specific this bony etiology for diffuse periumbilical pain. No evidence of diverticulitis, colitis, obstruction or appendicitis. 2. Mild intrahepatic biliary ductal dilatation. While this may be related to prior cholecystectomy, correlate with liver function tests. 3. Status post splenectomy Please note that all CT scans at this facility use dose modulation, iterative reconstruction, and/or weight-based dosing when appropriate to reduce radiation dose to as low as reasonably achievable. Dictated by Jaren Kang MD @ Nov 04 2020 3:09PM Signed by Dr. Jaren Kang @ Nov 04 2020 3:21PM
[2020-11-04] MEDS ORDERED: cefOXitin 2 GM in Premix Bag 1 BAG IV ONE (19:36)
[2020-11-04] MEDS ORDERED: Ondansetron 4 MG/2 ML SDV ONE (19:44)
[2020-11-04] MEDS ORDERED: Lidocaine 2% 5 ML SDV ONE (19:44)
[2020-11-04] MEDS ORDERED: fentaNYL 250 MCG/5 ML SDV ONE (19:44)
[2020-11-04] MEDS ORDERED: Dexamethasone 4 MG/ML 5 ML MDV ONE (19:44)
[2020-11-04] MEDS ORDERED: Propofol 200 MG/20 ML SDV ONE (19:44)
[2020-11-04] MEDS ORDERED: Midazolam 1 MG/ML 2 ML SDV ONE (19:44)
[2020-11-04] MEDS ORDERED: Rocuronium Bromide 50 MG/5 ML Syringe ONE (19:44)
[2020-11-04] MEDS ORDERED: Lactated Ringers 1,000 ML IV SCH ×2 (19:45→22:15)
--- NOTE | 2020-11-04 20:30 | PCM.SN.2 ---
- Free Text/Narrative Note: pain increased, wbc increased, proceed w surgery for appendectomy; pt concurred and proceeded; [id number]
--- NOTE | 2020-11-04 21:03 | PCM.PREANE ---
Preanesthetic Assessment - Procedure Proposed Procedure: laparoscopic appendectomy - Anesthesia/Transfusion/Family Hx Anesthesia History: Prior Anesthesia Without Reaction Transfusion History: Prior Transfusion Without Reaction - Review of Systems General: No Symptoms Pulmonary: No Symptoms, Cough (chronic) Cardiovascular: No Symptoms Gastrointestinal: Abdominal Pain Neurological: No Symptoms Other: Reports: None - Physical Assessment NPO Status Date: 11/04/20 NPO Status Time: 08:00 Vital Signs: Last Vital Signs Temp 36.3 C 11/04/20 17:19 Pulse 85 11/04/20 19:46 Resp 16 11/04/20 19:46 BP 101/65 11/04/20 19:46 Pulse Ox 97 11/04/20 19:46 Height: 5 ft 1 in Weight: 52.163 kg ASA Class: 3E Mental Status: Alert & Oriented x3 Airway Class: Mallampati = 2 Dentition: Reports: Broken Tooth/Teeth, Caries Thyro-Mental Finger Breadths: 2 Mouth Opening Finger Breadths: 2 ROM/Head Extension: Full Lungs: Clear to Auscultation Cardiovascular: Regular Rate, Regular Rhythm - Lab Values: Laboratory Last Values WBC 12.44 K/uL (4.0-11.0) H 11/04/20 19:10 RBC 3.59 M/uL (4.30-5.90) L 11/04/20 19:10 Hgb 10.8 g/dL (12.0-16.0) L 11/04/20 19:10 Hct 32.2 % (36.0-46.0) L 11/04/20 19:10 MCV 89.7 fL (80.0-98.0) 11/04/20 19:10 MCH 30.1 pg (27.0-32.0) 11/04/20 19:10 MCHC 33.5 g/dL (31.0-37.0) 11/04/20 19:10 RDW Std Deviation 46.0 fl (28.0-62.0) 11/04/20 19:10 RDW Coeff of Yahir 14 % (11.0-15.0) 11/04/20 19:10 Plt Count 381 K/uL (150-400) 11/04/20 19:10 MPV 9.70 fL (7.40-12.00) 11/04/20 19:10 Neut % (Auto) 58.4 % (48.0-80.0) 11/04/20 19:10 Lymph % (Auto) 29.8 % (16.0-40.0) 11/04/20 19:10 [place] % (Auto) 10.4 % (0.0-15.0) 11/04/20 19:10 Eos % (Auto) 1.2 % (0.0-7.0) 11/04/20 19:10 Baso % (Auto) 0.2 % (0.0-1.5) 11/04/20 19:10 Neut # (Auto) 7.3 K/uL (1.4-5.7) H 11/04/20 19:10 Lymph # (Auto) 3.7 K/uL (0.6-2.4) H 11/04/20 19:10 [place] # (Auto) 1.3 K/uL (0.0-0.8) H 11/04/20 19:10 Eos # (Auto) 0.2 K/uL (0.0-0.7) 11/04/20 19:10 Baso # (Auto) 0.0 K/uL (0.0-0.1) 11/04/20 19:10 Nucleated RBC % 0.0 /100WBC 11/04/20 19:10 Nucleated RBCs # 0 K/uL 11/04/20 19:10 INR 0.93 11/04/20 13:20 Lactate 0.7 mmol/L (0.20-2.00) 11/04/20 13:20 Sodium 140 mmol/L (136-145) 11/04/20 13:20 Potassium 3.9 mmol/L (3.5-5.1) 11/04/20 13:20 Chloride 105 mmol/L (98-107) 11/04/20 13:20 Carbon Dioxide 23.8 mmol/L (21.0-32.0) 11/04/20 13:20 BUN 16 mg/dL (7.0-18.0) 11/04/20 13:20 Creatinine 0.8 mg/dL (0.6-1.0) 11/04/20 13:20 Est Cr Clr Drug Dosing 70.54 mL/min 11/04/20 13:20 Estimated GFR (MDRD) > 60.0 ml/min 11/04/20 13:20 Glucose 89 mg/dL (74-106) 11/04/20 13:20 Calcium 8.5 mg/dL (8.5-10.1) 11/04/20 13:20 Total Bilirubin 0.4 mg/dL (0.2-1.0) 11/04/20 13:20 AST 14 IU/L (15-37) L 11/04/20 13:20 ALT 15 IU/L (14-63) 11/04/20 13:20 Alkaline Phosphatase 80 U/L (46-116) 11/04/20 13:20 Total Protein 7.2 g/dL (6.4-8.2) 11/04/20 13:20 Albumin 3.7 g/dL (3.4-5.0) 11/04/20 13:20 Globulin 3.5 g/dL (2.6-4.0) 11/04/20 13:20 Albumin/Globulin Ratio 1.1 (0.9-1.6) 11/04/20 13:20 Lipase 137 U/L (73-393) 11/04/20 13:20 HCG, Qual NEGATIVE (NEG) 11/04/20 13:20 Urine Color YELLOW 11/04/20 14:00 Urine Appearance CLEAR 11/04/20 14:00 Urine pH 5.5 (5.0-8.0) 11/04/20 14:00 Ur Specific [place] 1.015 (1.001-1.035) 11/04/20 14:00 Urine Protein NEGATIVE mg/dL (NEGATIVE) 11/04/20 14:00 Urine Glucose (UA) NEGATIVE mg/dL (NEGATIVE) 11/04/20 14:00 Urine Ketones NEGATIVE mg/dL (NEGATIVE) 11/04/20 14:00 Urine Occult Blood NEGATIVE (NEGATIVE) 11/04/20 14:00 Urine Nitrite NEGATIVE (NEGATIVE) 11/04/20 14:00 Urine Bilirubin NEGATIVE (NEGATIVE) 11/04/20 14:00 Urine Urobilinogen 0.2 EU/dL (<2.0) 11/04/20 14:00 Ur Leukocyte Esterase NEGATIVE (NEGATIVE) 11/04/20 14:00 Urine HCG, Qual NEGATIVE (NEGATIVE) 11/04/20 14:00 Urine Opiates Screen POSITIVE (NEGATIVE) 11/04/20 14:00 Ur Oxycodone Screen NEGATIVE (NEGATIVE) 11/04/20 14:00 Urine Methadone Screen NEGATIVE (NEGATIVE) 11/04/20 14:00 Ur Barbiturates Screen NEGATIVE (NEGATIVE) 11/04/20 14:00 Ur Phencyclidine Scrn NEGATIVE (NEGATIVE) 11/04/20 14:00 Ur Amphetamine Screen NEGATIVE (NEGATIVE) 11/04/20 14:00 U Methamphetamines Scrn NEGATIVE (NEGATIVE) 11/04/20 14:00 U Benzodiazepines Scrn NEGATIVE (NEGATIVE) 11/04/20 14:00 U Cocaine Metab Screen NEGATIVE (NEGATIVE) 11/04/20 14:00 U Marijuana (THC) Screen NEGATIVE (NEGATIVE) 11/04/20 14:00 SARS-CoV-2 RNA (RICH) NEGATIVE (NEGATIVE) 11/04/20 16:10 - Allergies Allergies/Adverse Reactions: Allergies Allergy/AdvReac Type Severity Reaction Status Date / Time ciprofloxacin [From Cipro] Allergy Other Verified 11/04/20 13:04 ciprofloxacin HCl Allergy Other Verified 11/04/20 13:04 [From Cipro] hydrocodone Allergy Nausea and Verified 11/04/20 13:04 Vomiting hydromorphone Allergy Nausea and Verified 11/04/20 13:04 Vomiting lithium [[place]] Allergy Nausea and Verified 11/04/20 13:04 Vomiting lurasidone HCl [From Latuda] Allergy Nausea and Verified 11/04/20 13:04 Vomiting Sulfa (Sulfonamide Allergy Nausea and Verified 11/04/20 13:04 Antibiotics) Vomiting sumatriptan [From Imitrex] Allergy Nausea and Verified 11/04/20 13:04 Vomiting - Blood Blood Available: No - Anesthesia Plan Pre-Op Medication Ordered: None - Acknowledgements Anesthesia Type Planned: General Anesthesia Pt an Appropriate Candidate for the Planned Anesthesia: Yes Alternatives and Risks of Anesthesia Discussed w Pt/Guardian: Yes Pt/Guardian Understands and Agrees with Anesthesia Plan: Yes PreAnesthesia Questionnaire HEENT History: Reports: None Cardiovascular History: Reports: None Respiratory History: Reports: Asthma Gastrointestinal History: Reports: None Genitourinary History: Reports: None TRANSITIONS 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 Neurological History: Reports: None Psychiatric History: Reports: Anxiety, Other (See Below) Other Psychiatric History: Borderline Personality Disorder Endocrine/Metabolic History: Reports: Other (See Below) Other Endocrine/Metabolic History: Thyroidectomy Hematologic History: Reports: None Immunologic History: Reports: None Oncologic (Cancer) History: Reports: None Dermatologic History: Reports: None - Infectious Disease History Infectious Disease History: Reports: None - Past Surgical History Head Surgeries/Procedures: Reports: None HEENT Surgical History: Reports: Tonsillectomy Respiratory Surgical History: Reports: None GI Surgical History: Reports: Cholecystectomy Other GI Surgeries/Procedures: 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 pauly fundiplication. d and c with thermal ablation. surgery done 02/03/15 Female Surgical History: Reports: Section Endocrine Surgical History: Reports: None Musculoskeletal Surgical History: Reports: Other (See Below) Other Musculoskeletal Surgeries/Procedures:: R hand for tendinitis - SUBSTANCE USE Tobacco Use Status *Q: Never Tobacco User Recreational Drug Use History: No - HOME MEDS Home Medications: Home Meds Escitalopram Oxalate [Lexapro] 20 mg PO DAILY 09/12/19 [History] lamoTRIgine [Lamictal] 100 mg PO DAILY 09/12/19 [History] Naproxen [Naprosyn] 500 mg PO Q12HR #20 tab 09/13/19 [Rx] methylPREDNISolone [Medrol Dose Pack] 4 mg PO DAILY #21 tab 04/06/20 [Rx] - CURRENT (IN HOUSE) MEDS Current Meds: Current Medications Lactated Ringer's (Ringers, Lactated) 1,000 mls @ 150 mls/hr IV ASDIRECTED PARUL Sodium Chloride (Saline Flush) 10 ml FLUSH ASDIRECTED PRN PRN Reason: Keep Vein Open Last Admin: 11/04/20 13:27 Dose: 10 ml Documented by: Sodium Chloride (Saline Flush) 2.5 ml FLUSH ASDIRECTED PRN PRN Reason: Keep Vein Open Last Admin: 11/04/20 13:27 Dose: 2.5 ml Documented by: Discontinued Medications Dexamethasone (Dexamethasone) Confirm Administered Dose 20 mg .ROUTE .STK-MED ONE Stop: 11/04/20 19:45 Fentanyl (Sublimaze) Confirm Administered Dose 250 mcg .ROUTE .STK-MED ONE Stop: 11/04/20 19:45 Lactated Ringer's (Ringers, Lactated) 1,000 mls @ 999 mls/hr IV .BOLUS ONE Stop: 11/04/20 13:53 Last Admin: 11/04/20 13:25 Dose: 999 mls/hr Documented by: Lactated Ringer's (Ringers, Lactated) 1,000 mls @ 999 mls/hr IV .BOLUS ONE Stop: 11/04/20 18:10 Last Admin: 11/04/20 17:15 Dose: 999 mls/hr Documented by: Cefoxitin Sodium 2 gm/ Premix 50 mls @ 100 mls/hr IV ONETIME ONE Stop: 11/04/20 20:05 Last Admin: 11/04/20 20:08 Dose: 100 mls/hr Documented by: Lactated Ringer's (Ringers, Lactated) 1,000 mls @ 999 mls/hr IV .BOLUS ONE Stop: 11/04/20 20:44 Last Admin: 11/04/20 19:45 Dose: 999 mls/hr Documented by: Iopamidol (Isovue Multipack-370 (76%)) 75 ml IVPUSH ONETIME STA Stop: 11/04/20 14:59 Last Admin: 11/04/20 14:59 Dose: 75 ml Documented by: Lidocaine (Xylocaine-Mpf 2%) Confirm Administered Dose 5 ml .ROUTE .STK-MED ONE Stop: 11/04/20 19:45 Midazolam HCl (Versed 1 Mg/Ml) Confirm Administered Dose 2 mg .ROUTE .STK-MED ONE Stop: 11/04/20 19:45 Morphine Sulfate (Morphine) 4 mg IVPUSH ONETIME ONE Stop: 11/04/20 13:02 Last Admin: 11/04/20 13:26 Dose: 4 mg Documented by: Morphine Sulfate (Morphine) 4 mg IVPUSH ONETIME ONE Stop: 11/04/20 15:23 Last Admin: 11/04/20 15:28 Dose: 4 mg Documented by: Morphine Sulfate (Morphine) 4 mg IVPUSH ONETIME ONE Stop: 11/04/20 17:11 Last Admin: 11/04/20 17:16 Dose: 4 mg Documented by: Ondansetron HCl (Zofran) 4 mg IVPUSH ONETIME ONE Stop: 11/04/20 12:54 Last Admin: 11/04/20 13:26 Dose: 4 mg Documented by: Ondansetron HCl (Zofran) 4 mg IVPUSH ONETIME ONE Stop: 11/04/20 19:20 Last Admin: 11/04/20 19:36 Dose: 4 mg Documented by: Ondansetron HCl (Zofran) Confirm Administered Dose 4 mg .ROUTE .STK-MED ONE Stop: 11/04/20 19:45 Propofol (Diprivan 20 Ml) Confirm Administered Dose 200 mg .ROUTE .STK-MED ONE Stop: 11/04/20 19:45 Rocuronium [place] (Rocuronium [place]) Confirm Administered Dose 50 mg .ROUTE .STK-MED ONE Stop: 11/04/20 19:45
[2020-11-04] MEDS ORDERED: Ketamine 500 mg/10 ML MDV ONE (21:38)
[2020-11-04] MEDS ORDERED: Glycopyrrolate 0.2 MG/ML SDV ONE (21:47)
[2020-11-04] MEDS ORDERED: Ketorolac 30 MG/ML SDV ONE (21:51)
--- NOTE | 2020-11-04 22:13 | PCM.OPNOTE ---
- General Post-Op/Procedure Note Date of Surgery/Procedure: 11/04/20 Operative Procedure(s): lap appendectomy Findings: appendix is hyperemic, and indurated at distal tip, cw tip appendicitis; gross perf not observed; [id number] Pre Op Diagnosis: acute appendicitis Post-Op Diagnosis: Same Anesthesia Technique: General ET Tube, Moderate Sedation Primary Surgeon: Brennon Olmos Pathology: sent Condition: Good
[2020-11-04] MEDS ORDERED: Morphine 4 MG/ML Syringe IV PRN (22:14)
--- NOTE | 2020-11-04 22:22 | PCM.POSTAN ---
POST ANESTHESIA ASSESSMENT - MENTAL STATUS Mental Status: Alert, Oriented - VITAL SIGNS Vital Signs: Last Vital Signs Temp 36.9 C 11/04/20 22:08 Pulse 73 11/04/20 22:18 Resp 12 11/04/20 22:18 BP 98/49 L 11/04/20 22:18 Pulse Ox 97 11/04/20 22:18 - PAIN Pain Score: 3
--- NOTE | 2020-11-04 23:30 | OR ---
SURGEON: Brennon Olmos MD DATE OF PROCEDURE: 11/04/2020 PREOPERATIVE DIAGNOSIS: Acute appendicitis. POSTOPERATIVE DIAGNOSIS: Acute appendicitis. PROCEDURE PERFORMED: Laparoscopic appendectomy. PRIMARY SURGEON: Brennon Olmos MD. COMPLICATIONS: None. FINDING: Appendix was hyperemic and indurated at distal tip consistent with acute appendicitis. Gross perforation was not observed. PROCEDURE IN DETAIL: The patient was taken to the operating room and placed in the supine position. Following induction of general endotracheal anesthesia, the patient's abdomen was prepped and draped in the sterile fashion. A time-out has been called. The patient was identified. The procedure was identified. The antibiotics were identified. The procedure then proceeded. The abdomen was prepped and draped in a standard fashion. After assessment of appropriate landmarks, a 12 millimeter trocar was inserted supraumbilically using Optiview and pneumoperitoneum was then achieved. This was followed with placement of 5 millimeter port in the right upper quadrant and another 5 millimeter port infraumbilically. The camera was inserted supraumbilical site and two laparoscopic [place] retractors were then inserted through the other two sites. Following the cecum, the appendix was located. The appendix was then lifted up, and using a GI stapler the appendix was amputated at the base. And using the GI stapler, the mesoappendix was then amputated. The appendix was retrieved by an endoscopic bag and sent for pathologist. This was then followed by re-insertion of the camera to examine the staple line, and hemostasis. The trocars were then removed. The umbilical site was closed with 2-0 Vicryl deep stitch and 4 -0 Vicryl and skin lesly; the other 2 5 mm port sites were closed with 4-0 Vicryl and skin lesly. The patient was then awakened, extubated, and transferred to the recovery room in hemodynamically stable condition. Prior to closing, sponge count and instrument count was correct. Intraoperative findings as dictated above. Dr. Olmos was present throughout the whole procedure. As always, thank you for the kind referral. FADY / SUZI /[id number]
[2020-11-04] MEDS: Acetaminophen/oxyCODONE 325-5 MG Tab PO PRN (23:43)
[2020-11-05] MEDS ORDERED: Ondansetron 4 MG/2 ML SDV IVPUSH PRN (01:25)
[2020-11-05] MEDS: Ketorolac 10 MG Tab PO SCH ×3 (03:38→10:26)
--- NOTE | 2020-11-05 06:40 | PCM48HPAN ---
Post Anesthesia Note - EVALUATION WITHIN 48HRS OF ANESTHETIC Vital Signs in Normal Range: Yes Patient Participated in Evaluation: Yes Respiratory Function Stable: Yes Airway Patent: Yes Cardiovascular Function Stable: Yes Hydration Status Stable: Yes Pain Control Satisfactory: Yes Nausea and Vomiting Control Satisfactory: Yes Mental Status Recovered: Yes Vital Signs: Last Vital Signs Temp 36.4 C 11/05/20 04:01 Pulse 77 11/05/20 04:01 Resp 16 11/05/20 04:01 BP 116/75 11/05/20 04:01 Pulse Ox 100 11/05/20 04:01
--- NOTE | 2020-11-05 06:56 | HP ---
DATE OF : 1980 PRIMARY CARE PHYSICIAN: None PCP HISTORY OF PRESENT ILLNESS: The patient is a 40-year-old lady complaining about 3- to 4-day gradual onset of periumbilical pain, subsequently migrated to the right lower quadrant and sought help in the emergency room. CAT scan shows appendix normal. White count is 9. Surgery was then consulted. PAST MEDICAL HISTORY: Refer to the ER consult note for details. PAST SURGICAL HISTORY: Refer to the ER consult note for details. ALLERGIES: Please refer to nursing for details. MEDICATIONS: Please refer to nursing for details. PHYSICAL EXAMINATION: ABDOMEN: The patient has exquisite tenderness right at the McBur[place] point. Also positive straight leg raising sign, positive Rovsing sign and also painful upon jumping up. White count is 9. PLAN: Will be admit for observation versus going to surgery as examination is difficult. After we repeated white count, it turned out the white count had increased to 13. The patient will go to surgery for appendectomy. The patient understood, concurred with plan. As always, thank you for the kind referral. FADY ARCHER /[id number] NIKA
[2020-11-05] MEDS: Acetaminophen/oxyCODONE 325-5 MG Tab PO PRN (07:04)
[2020-11-05 08:06] VITALS: BP 94/57; PULSE 80
--- NOTE | 2020-11-09 15:33 | PCM.SN.2 ---
- Free Text/Narrative Note: dc summary [id number]
--- NOTE | 2020-11-10 08:46 | DISCH ---
DATE OF DISCHARGE: 11/05/2020 PRIMARY CARE PHYSICIAN: None PCP DIAGNOSIS: Appendicitis. Please refer to admission history and physical for detail. In summary, the patient was seen in the emergency room for excruciating right lower quadrant pain and CAT scan was saying a lot more appendix and no white count, but the patient's clinical presentation is appendicitis, and on repeat white count, white count went up from 9 to 13. The patient was then consulted with Surgery. HOSPITAL COURSE: The patient was taken to operating room by myself and status post appendectomy. Appendix was pretty indurated and had a tip appendicitis. Postop, the patient is doing well and sent to referral and started oral diet the next morning. The patient tolerated well and was able to ambulate by self. Pain is in control and wound is clean, dry, intact. The patient was discharged home with pain medication and antibiotic. The patient would get a followup appointment with myself 1 week from today. FADY / SUZI /[id number]
== END 2020-11-05 11:05 | disposition home or self-care (01) ==
LOC: MW.ED 12:12 → MW.MS 19:36
PROVIDERS: ADMIT Surgery; ATTEND Surgery
DX: K35.80 Unspecified acute appendicitis (principal); Z01.812 Encounter for preprocedural laboratory examination; Z20.822 Contact with and (suspected) exposure to COVID-19; Z88.1 Allergy status to other antibiotic agents; Z88.8 Allergy status to other drugs, medicaments and biological substances; Z88.2 Allergy status to sulfonamides; Z79.899 Other long term (current) drug therapy; Z98.890 Other specified postprocedural states
CPT/HCPCS: 00840; 36415; 74177; 74177-26; 80053; 80305-QW; 81003; 81025; 83605; 83690; 84703; 85025; 85610; 88304; 96365; 96375; 96376; 99284; 99285-25; A9270-GY; C1776; J0694; J1100; J1885; J2250; J2270; J2405; J2704; J3010; J3490; J7120; Q9967; U0002

== ENCOUNTER 2020-12-09 17:22 | Emergency (ER) | payer SELFPAY ==
[2020-12-09 17:41] VITALS: BP 110/67; PULSE 92
[2020-12-09] MEDS ORDERED: Sodium Chloride 0.9% 2.5 ML Syringe FLUSH PRN (17:58)
[2020-12-09] MEDS ORDERED: Sodium Chloride 0.9% 10 ML Syringe FLUSH PRN (17:58)
--- NOTE | 2020-12-09 19:28 | EDM.PDOC ---
ED HPI GENERAL MEDICAL PROBLEM - General Chief Complaint: ENT Problem Stated Complaint: UNKNOWN Time Seen by Provider: 12/09/20 17:23 Source of Information: Reports: Patient History Limitations: Reports: No Limitations - History of Present Illness INITIAL COMMENTS - FREE TEXT/NARRATIVE: HISTORY AND PHYSICAL: History of present illness: Patient is a 40-year-old female who presents to the ED today with concern of left-sided facial swelling that she woke up with this morning. Patient states that she has been having some pain in her left sinus area and states that she has had pus draining out of her nose and her eye. Patient states that this morning when she woke up the entire area was swollen and is now radiating into her teeth, although she states that the teeth themselves do not hurt when she chews on them. Patient states that she has not taken anything for her symptoms. Patient denies any health history. Patient denies any other associated symptoms. Patient denies fever, chills, chest pain, shortness of breath, or cough. Denies headache, neck stiff ness, change in vision, syncope, or near syncope. Denies nausea, vomiting, abdominal pain, diarrhea, constipation, or dysuria. Has not noted any blood in urine or stool. Patient has been eating and drinking appropriately. Review of systems: As per history of present illness and below otherwise all systems reviewed and negative. Past medical history: As per history of present illness and as reviewed below otherwise noncontributory. Surgical history: As per history of present illness and as reviewed below otherwise noncontributory. Social history: See social history for further information Family history: As per history of present illness and as reviewed below otherwise noncontributory. Physical exam: General: Patient is alert, oriented, and in no acute distress. Patient sitting comfortably on exam table. HEENT: Generalized poor dentition. No obvious dental abscess. Patient does have significant edema of her left maxillary sinus area that extends into her nose and eye. EOMs intact without difficulty. Visual acuity intact. Otherwise, atraumatic, normocephalic, pupils equal and reactive bilaterally, negative for conjunctival pallor or scleral icterus, mucous membranes moist, TMs normal bilaterally, throat clear, neck supple, nontender, trachea midline. No drooling or trismus noted. No meningeal signs. No hot potato voice noted. Lungs: Clear to auscultation, breath sounds equal bilaterally, chest nontender. Heart: S1S2, regular rate and rhythm without overt murmur Abdomen: Soft, nondistended, nontender. Negative for masses or hepatosplenomegaly. Negative for costovertebral tenderness. Pelvis: Stable nontender. Genitourinary: Deferred. Rectal: Deferred. Skin: Intact, warm, dry. No lesions or rashes noted. Extremities: Atraumatic, negative for cords or calf pain. Neurovascular unremarkable. Neuro: Awake, alert, oriented. Cranial nerves II through XII unremarkable. Cere bellum unremarkable. Motor and sensory unremarkable throughout. Exam nonfocal. Notes: On initial exam, patient is vitally stable and well-appearing. She does have an overt infection just left of her nostril, overlying the left maxillary sinus. However this area is quite edematous and erythematous and I am concerned for the area of infection. Does not appear to be an infection of her tooth on exam. We will perform routine lab work as will obtain a scan maxillofacial CT. Patient eloped the ED before lab work or diagnostics could be completed Diagnostics: Eloped (CBC, CMP, UA, Serum hcg, Maxilofacial CT w cont) Therapeutics: Eloped Prescription: Eloped Impression: Eloped Facial infection Plan: Patient eloped the ED prior to discharge Definitive disposition and diagnosis as appropriate pending reevaluation and review of above. facial Pain Score (Numeric/FACES): 3 - Related Data Allergies Allergy/AdvReac Type Severity Reaction Status Date / Time ciprofloxacin [From Cipro] Allergy Other Verified 12/09/20 17:41 ciprofloxacin HCl Allergy Other Verified 12/09/20 17:41 [From Cipro] hydrocodone Allergy Nausea and Verified 12/09/20 17:41 Vomiting hydromorphone Allergy Nausea and Verified 12/09/20 17:41 Vomiting lithium [[place]] Allergy Nausea and Verified 12/09/20 17:41 Vomiting lurasidone HCl [From Latuda] Allergy Nausea and Verified 12/09/20 17:41 Vomiting Sulfa (Sulfonamide Allergy Nausea and Verified 12/09/20 17:41 Antibiotics) Vomiting sumatriptan [From Imitrex] Allergy Nausea and Verified 12/09/20 17:41 Vomiting Home Meds: Home Meds hydrOXYzine HCL [Atarax] 50 mg PO QID 11/04/20 [History] Past Medical History HEENT History: Reports: None Cardiovascular History: Reports: None Respiratory History: Reports: Asthma Gastrointestinal History: Reports: None Genitourinary History: Reports: None 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 pauly fundiplication. d and c with thermal ablation. surgery done 02/03/15 Female Surgical History: Reports: Section Endocrine Surgical History: Reports: None Musculoskeletal Surgical History: Reports: Other (See Below) Other Musculoskeletal Surgeries/Procedures:: R hand for tendinitis Social & Family History - Family History Family Medical History: No Pertinent Family History - Tobacco Use Tobacco Use Status *Q: Current Every Day Tobacco User Years of Tobacco use: 20 Packs/Tins Daily: 1 - Caffeine Use Caffeine Use: Reports: Coffee, Energy Drinks, Soda Caffeine Use Comment: 64 ounces/day - Recreational Drug Use Recreational Drug Use: No - Living Situation & Occupation Living situation: Reports: with Significant Other ED ROS GENERAL - Review of Systems Review Of Systems: Comprehensive ROS is negative, except as noted in HPI. ED EXAM, GENERAL - Physical Exam Exam: See Below (See dictation) Course - Vital Signs Last Recorded V/S: Last Vital Signs Temp 97.6 F 12/09/20 17:37 Pulse 92 12/09/20 17:37 Resp 18 12/09/20 17:37 BP 110/67 12/09/20 17:37 Pulse Ox 97 12/09/20 17:37 - Orders/Labs/Meds Orders: Active Orders 24 hr Category Date Time Status CBC WITH AUTO DIFF [HEME] Stat Lab 12/09/20 17:58 Ordered COMPREHENSIVE METABOLIC PN,CMP [CHEM] Stat Lab 12/09/20 17:58 Ordered HCG QUALITATIVE,SERUM [CHEM] Stat Lab 12/09/20 17:59 Ordered Saline Lock Insert [OM.PC] Stat Oth 12/09/20 17:58 Ordered Meds: Medications Discontinued Medications Generic Name Dose Route Start Last Admin Trade Name Freq PRN Reason Stop Dose Admin Sodium Chloride 10 ml 12/09/20 17:58 Sodium Chloride 0.9% 10 Ml Syringe FLUSH ASDIRECTED PRN Keep Vein Open Sodium Chloride 2.5 ml 12/09/20 17:58 Sodium Chloride 0.9% 2.5 Ml Syringe FLUSH ASDIRECTED PRN Keep Vein Open Departure - Departure Time of Disposition: 19:20 Disposition: Eloped 07 Clinical Impression: Eloped from emergency department, Facial infection - Discharge Information Referrals: PCP,None [Primary Care Provider] - Forms: ED Department Discharge Additional Instructions: Patient eloped the ED without ever receiving lab work or imaging or informing anyone of elopment Sepsis Event Note (ED) - Evaluation Sepsis Screening Result: No Definite Risk - Focused Exam Vital Signs: Vital Signs Temp Pulse Resp BP Pulse Ox 12/09/20 17:37 97.6 F 92 18 110/67 97 - My Orders Last 24 Hours: My Active Orders 12/09/20 17:58 CBC WITH AUTO DIFF [HEME] Stat COMPREHENSIVE METABOLIC PN,CMP [CHEM] Stat Saline Lock Insert [OM.PC] Stat 12/09/20 17:59 HCG QUALITATIVE,SERUM [CHEM] Stat - Assessment/Plan Last 24 Hours: My Active Orders 12/09/20 17:58 CBC WITH AUTO DIFF [HEME] Stat COMPREHENSIVE METABOLIC PN,CMP [CHEM] Stat Saline Lock Insert [OM.PC] Stat 12/09/20 17:59 HCG QUALITATIVE,SERUM [CHEM] Stat
== END 2020-12-09 18:34 | disposition left against medical advice (07) ==
LOC: MW.ED 17:22
DX: L08.9 Local infection of the skin and subcutaneous tissue, unspecified (principal); J45.909 Unspecified asthma, uncomplicated; Z88.1 Allergy status to other antibiotic agents; Z88.5 Allergy status to narcotic agent; Z88.2 Allergy status to sulfonamides; Z88.8 Allergy status to other drugs, medicaments and biological substances; Z72.0 Tobacco use
CPT/HCPCS: 99282; 99283

== ENCOUNTER 2020-12-10 13:28 | Emergency (ER) | payer SELFPAY ==
--- NOTE | 2020-12-10 13:33 | EDM.PDOC ---
ED HPI GENERAL MEDICAL PROBLEM - General Stated Complaint: SWOLLEN FACE, WAS HERE LAST NIGHT Time Seen by Provider: 12/10/20 13:32 Source of Information: Reports: Patient History Limitations: Reports: No Limitations - History of Present Illness INITIAL COMMENTS - FREE TEXT/NARRATIVE: HISTORY AND PHYSICAL: History of present illness: Patient is a 40-year-old female who presents to the emergency room with complaints of left-sided facial swelling and pain that started yesterday. She was seen in the emergency room yesterday but due to a family emergency had to go home, eloped. Pain radiates along the sinus cavity and into her teeth. Today she has noticed tooth #9 through 11 are edematous and tender to touch, "looks like an abscess". She does states she has had problems with her teeth/decay. She has not taken any [id number]-quavkjr medications or prescribed medications for this. Patient denies any fever, chills, headache, change in vision, syncope or near syncope. Denies any chest pain, back pain, shortness of breath or cough. Denies any abdominal pain, nausea, vomiting, diarrhea, constipation or dysuria. Has not noted any blood in urine or stool. Patient has been eating and drinking appropriately. Review of systems: As per history of present illness and below otherwise all systems reviewed and negative. Past medical history: As per history of present illness and as reviewed below otherwise noncontributory. Surgical history: As per history of present illness and as reviewed below otherwise noncontributory. Social history: See social history for further information Family history: As per history of present illness and as reviewed below otherwise noncontributory. Physical exam: General: Well developed and well nourished. Alert and orientated x 3. Nontoxic in appearance and in no acute distress. Vital signs are stable and have been reviewed by me. Nursing notes were reviewed. HEENT: Atraumatic, normocephalic, pupils equal and reactive bilaterally, negative for conjunctival pallor or scleral icterus, mucous membranes moist, tooth #8 and 9 on severely decayed with erythema and tenderness along the gumline extending into #10 and 11. TMs normal bilaterally, throat clear, neck supple, nontender, trachea midline. No drooling or trismus noted. No meningeal signs. No hot potato voice noted. Lungs: Clear to auscultation bilaterally. No wheezes, rales, or rhonchi. Normal work of breathing, no accessory muscles used. Heart: S1S2, regular rate and rhythm without overt murmur, gallops, or rubs. No JVD. No peripheral edema Abdomen: Soft, nondistended, nontender. Skin: Intact, warm, dry. No lesions or rashes noted. Hematologic: No petechiae or purpra. Mucosa appropriate color and normal nail bed color and refill. Extremities: Atraumatic, moves all extremities per self without difficulty or deficits, negative for cords or calf pain. Neurovascular unremarkable. Neuro: Awake, alert, oriented. Cranial nerves II through XII unremarkable. Cerebellum unremarkable. Motor and sensory unremarkable throughout. Exam nonfocal. Psychiatric: Mood and affect are appropriate. Normal thought process. Answering questions appropriately. Notes: *This patient was seen and evaluated during the 2019 SARS-CoV-2 novel coronavirus pandemic period. Community viral transmission is ongoing at time of this encounter and the emergency department is operating under pandemic response procedures. Patient states that the source of infection has developed from her teeth, states it was not like this yesterday. We discussed doing labs and CT which was suggested yesterday. Now that it does appear to be a dental abscess I do not feel diagnostics are required at this time. We will place her on antibiotics and give her Tylenol 3, she has had be safely in the past. I have talked with the patient about today's findings, in addition to providing specific details for plan of care. Reassessment at the time of disposition demonstrates that the patient is in no acute distress. The patient is stable for discharge, counseling was provided and we discussed in great detail signs and symptoms that would prompt them to return to the Emergency Department. Medication, follow up a nd supportive care measures were reviewed and discussed. Voices understanding and is agreeable to plan of care. Denies any further questions or concerns at this time. Diagnostics: None Therapeutics: Augmentin, Tylenol #3, Dental Balls Prescription: Augmentin, Tylenol #3 Impression: Dental Abscess Plan: 1. Please take the antibiotic as prescribed. 2. Tylenol and/or ibuprofen as needed for pain management. "Tooth Balls" have been given to you; apply along the gumline every 2-3 hours as needed. Do not swallow these; external use only. 3. Follow-up with a dentist for definitive care. Return to the ED as needed and as discussed. Definitive disposition and diagnosis as appropriate pending reevaluation and review of above. - Related Data Allergies Allergy/AdvReac Type Severity Reaction Status Date / Time ciprofloxacin [From Cipro] Allergy Other Verified 12/10/20 14:09 ciprofloxacin HCl Allergy Other Verified 12/10/20 14:09 [From Cipro] hydrocodone Allergy Nausea and Verified 12/10/20 14:09 Vomiting hydromorphone Allergy Nausea and Verified 12/10/20 14:09 Vomiting lithium [[employer]] Allergy Nausea and Verified 12/10/20 14:09 Vomiting lurasidone HCl [From Latuda] Allergy Nausea and Verified 12/10/20 14:09 Vomiting Sulfa (Sulfonamide Allergy Nausea and Verified 12/10/20 14:09 Antibiotics) Vomiting sumatriptan [From Imitrex] Allergy Nausea and Verified 12/10/20 14:09 Vomiting Home Meds: Home Meds hydrOXYzine HCL [Atarax] 50 mg PO QID 11/04/20 [History] Acetaminophen/Codeine [Tylenol with Codeine No.3 300MG/30MG] 1 tab PO Q4H PRN #20 tab 12/10/20 [Rx] Amoxicillin/Clavulanate K [Augmentin 875-125 MG] 1 tab PO BID 7 Days #14 tablet 12/10/20 [Rx] Past Medical History HEENT History: Reports: None Cardiovascular History: Reports: None Respiratory History: Reports: Asthma Gastrointestinal History: Reports: None Genitourinary History: Reports: None 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 Neurological History: Reports: Migraines Psychiatric History: Reports: ADD, Anxiety, Bipolar, PTSD, Other (See Below) Other Psychiatric History: Borderline Personality Disorder Endocrine/Metabolic History: Reports: None Other Endocrine/Metabolic History: Thyroidectomy Insulin Pump Model and Search Strategist: None Hematologic History: Reports: Anemia Immunologic History: Reports: None Oncologic (Cancer) History: Reports: None Dermatologic History: Reports: None - Infectious Disease History Infectious Disease History: Reports: None, Chicken Pox - Past Surgical History Head Surgeries/Procedures: Reports: None HEENT Surgical History: Reports: Tonsillectomy Respiratory Surgical History: Reports: None GI Surgical History: Reports: Appendectomy, Cholecystectomy Other GI Surgeries/Procedures: 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 pauly fundiplication. d and c with thermal ablation. surgery done 02/03/15 Female Surgical History: Reports: Section Endocrine Surgical History: Reports: None Musculoskeletal Surgical History: Reports: Other (See Below) Other Musculoskeletal Surgeries/Procedures:: R hand for tendinitis Social & Family History - Family History Family Medical History: No Pertinent Family History - Caffeine Use Caffeine Use: Reports: Coffee, Energy Drinks, Soda Caffeine Use Comment: 64 ounces/day - Living Situation & Occupation Living situation: Reports: with Significant Other ED ROS ENT - Review of Systems Review Of Systems: Comprehensive ROS is negative, except as noted in HPI. ED EXAM, ENT - Physical Exam Exam: See Below (See dictation) Course - Vital Signs Last Recorded V/S: Last Vital Signs Temp 98 F 12/10/20 13:45 Pulse 86 12/10/20 13:45 Resp 16 12/10/20 13:45 BP 98/56 L 12/10/20 13:45 Pulse Ox 97 12/10/20 13:45 - Orders/Labs/Meds Meds: Medications Discontinued Medications Generic Name Dose Route Start Last Admin Trade Name Freq PRN Reason Stop Dose Admin Acetaminophen/Codeine Phosphate 1 tab 12/10/20 13:57 Acetaminophen/Codeine 300-30 Mg Tab PO 12/10/20 13:58 ONETIME ONE Amoxicillin/Clavulanate Potassium 1 tab 12/10/20 13:57 Amoxicillin/Clavulanate K 875-125 Mg Tab PO 12/10/20 13:58 ONETIME ONE Benzocaine 2 each 12/10/20 13:58 Benzocaine 20% Topical Soso Ud MUCMEM 12/10/20 13:59 ONETIME ONE Lidocaine HCl 15 ml 12/10/20 13:58 Lidocaine 2% Viscous Solution 15 Ml Cup PO 12/10/20 13:59 ONETIME ONE Departure - Departure Time of Disposition: 14:09 Disposition: Home, Self-Care 01 Clinical Impression: Dental abscess - Discharge Information Prescriptions: Amoxicillin/Clavulanate K [Augmentin 875-125 MG] 1 tab PO BID 7 Days #14 tablet Acetaminophen/Codeine [Tylenol with Codeine No.3 300MG/30MG] 1 tab PO Q4H PRN #20 tab PRN Reason: Pain Instructions: Dental Abscess, [id number] Referrals: PCP,None [Primary Care Provider] - Additional Instructions: The following information is given to patients seen in the emergency department who are being discharged to home. This information is to outline your options for follow-up care. We provide all patients seen in our emergency department with a follow-up referral. The need for follow-up, as well as the timing and circumstances, are variable depending upon the specifics of your emergency department visit. If you don't have a primary care physician on staff, we will provide you with a referral. We always advise you to contact your personal physician following an emergency department visit to inform them of the circumstance of the visit and for follow-up with them and/or the need for any referrals to a consulting specialist. The emergency department will also refer you to a specialist when appropriate. This referral assures that you have the opportunity for follow-up care with a specialist. All of these measure are taken in an effort to provide you with optimal care, which includes your follow-up. Under all circumstances we always encourage you to contact your private physician who remains a resource for coordinating your care. When calling for follow-up care, please make the office aware that this follow-up is from your recent emergency room visit. If for any reason you are refused follow-up, please contact the [facility] Emergency Department at and asked to speak to the emergency department charge nurse. [facility] [address] [place] [address] [place] [address] Thank you for choosing the [facility] emergency department in [place] for your medical needs today. It was a pleasure caring for you. Today you were seen in the emergency department for dental abscess. 1. Please take the antibiotic as prescribed. 2. Tylenol and/or ibuprofen as needed for pain management. "Tooth Balls" have been given to you; apply along the gumline every 2-3 hours as needed. Do not swallow these; external use only. 3. Follow-up with a dentist for definitive care. Return to the ED as needed and as discussed. Sepsis Event Note (ED) - Focused Exam Vital Signs: Vital Signs Temp Pulse Resp BP Pulse Ox 12/10/20 13:45 98 F 86 16 98/56 L 97
[2020-12-10] MEDS ORDERED: Acetaminophen/Codeine 300-30 MG Tab PO ONE (13:57)
[2020-12-10] MEDS ORDERED: Amoxicillin/Clavulanate K 875-125 MG Tab PO ONE (13:57)
[2020-12-10] MEDS ORDERED: Benzocaine 20% Topical Spray UD MUCMEM ONE (13:58)
[2020-12-10] MEDS ORDERED: Lidocaine 2% Viscous Solution 15 ML Cup PO ONE (13:58)
[2020-12-10 19:38] VITALS: BP 100/56; PULSE 80
== END 2020-12-10 14:30 | disposition home or self-care (01) ==
LOC: MW.ED 13:28
DX: K04.7 Periapical abscess without sinus (principal); J45.909 Unspecified asthma, uncomplicated; Z88.1 Allergy status to other antibiotic agents; Z88.5 Allergy status to narcotic agent; Z88.8 Allergy status to other drugs, medicaments and biological substances; Z88.2 Allergy status to sulfonamides
CPT/HCPCS: 99283; A9270; 99282

== ENCOUNTER 2023-04-03 11:36 | Emergency (ER) | payer SELFPAY ==
[2023-04-03 12:17] VITALS: BP 102/60; PULSE 77
== END 2023-04-03 12:16 | disposition home or self-care (01) ==
LOC: MW.ED 11:36
DX: K04.7 Periapical abscess without sinus (principal); K02.9 Dental caries, unspecified; J45.909 Unspecified asthma, uncomplicated; Z79.899 Other long term (current) drug therapy; Z88.8 Allergy status to other drugs, medicaments and biological substances; Z88.1 Allergy status to other antibiotic agents; Z88.5 Allergy status to narcotic agent; Z88.2 Allergy status to sulfonamides
CPT/HCPCS: 99282; 99283

== ENCOUNTER 2023-05-22 13:07 | Emergency (ER) | payer SELFPAY ==
[2023-05-22 13:45] VITALS: BP 93/61; PULSE 79
== END 2023-05-22 15:39 | disposition home or self-care (01) ==
LOC: MW.ED 13:07
DX: J20.9 Acute bronchitis, unspecified (principal); F17.210 Nicotine dependence, cigarettes, uncomplicated; J45.909 Unspecified asthma, uncomplicated; Z20.822 Contact with and (suspected) exposure to COVID-19; Z79.899 Other long term (current) drug therapy; Z88.8 Allergy status to other drugs, medicaments and biological substances; Z88.2 Allergy status to sulfonamides; Z88.1 Allergy status to other antibiotic agents
CPT/HCPCS: 71046; 71046-26; 99283; U0002

== ENCOUNTER 2023-07-11 18:52 | Emergency (ER) | payer SELFPAY ==
[2023-07-11 19:30] VITALS: BP 99/64
[2023-07-11] MEDS ORDERED: Amoxicillin/Clavulanate K 875-125 MG Tab PO ONE (19:35)
[2023-07-11] MEDS ORDERED: Lidocaine 2% Viscous Solution 15 ML UD PO ONE (19:36)
[2023-07-11] MEDS ORDERED: Benzocaine 20% Topical Spray UD MUCMEM ONE (19:36)
[2023-07-11 19:52] VITALS: PULSE 80
== END 2023-07-11 19:51 | disposition home or self-care (01) ==
LOC: MW.ED 18:52
DX: K04.7 Periapical abscess without sinus (principal); J45.909 Unspecified asthma, uncomplicated; Z79.899 Other long term (current) drug therapy; Z88.2 Allergy status to sulfonamides; Z88.8 Allergy status to other drugs, medicaments and biological substances; Z88.1 Allergy status to other antibiotic agents
CPT/HCPCS: 99282; 99283; A9270-GY

== ENCOUNTER 2023-08-08 15:31 | Emergency (ER) | payer SELFPAY ==
[2023-08-08 16:21] VITALS: BP 119/85
[2023-08-08] MEDS ORDERED: Diclofenac Sodium 75 MG Tab.EC PO ONE (16:36)
[2023-08-08] MEDS ORDERED: Cyclobenzaprine 10 MG Tab PO ONE (16:36)
[2023-08-08] MEDS ORDERED: Lidocaine 4% 1 each Patch TOP PRN (16:36)
[2023-08-08 17:30] VITALS: PULSE 85
== END 2023-08-08 17:29 | disposition home or self-care (01) ==
LOC: MW.ED 15:31
DX: M79.622 Pain in left upper arm (principal); J45.909 Unspecified asthma, uncomplicated; Z90.49 Acquired absence of other specified parts of digestive tract; F17.210 Nicotine dependence, cigarettes, uncomplicated; Z88.1 Allergy status to other antibiotic agents; Z88.5 Allergy status to narcotic agent; Z88.2 Allergy status to sulfonamides; Z88.8 Allergy status to other drugs, medicaments and biological substances; Z91.048 Other nonmedicinal substance allergy status
CPT/HCPCS: 99283; A9270

== ENCOUNTER 2023-09-10 13:10 | Emergency (ER) | payer SELFPAY ==
[2023-09-10] MEDS ORDERED: Sodium Chloride 0.9% 1,000 ML IV ONE (14:03)
[2023-09-10 14:24] LABS: BASOPHILS ABSOLUTE AUTO 0.05 K/uL (0.00-0.20); BASOPHILS PERCENT AUTO 0.4 % (0.0-1.0); EOSINOPHILS ABSOLUTE AUTO 0.21 K/uL (0.00-0.45); EOSINOPHILS PERCENT AUTO 1.8 % (0.0-6.0); HEMATOCRIT 39.4 % (37.0-47.0); HEMOGLOBIN 13.4 g/dL (12.0-16.0); IMMATURE GRAN ABSOLUTE AUTO 0.02 K/uL (0.00-0.05); IMMATURE GRAN PERCENT AUTO 0.2 % (0.0-0.4); LYMPHOCYTES ABSOLUTE AUTO 3.41 K/uL (1.00-4.80); LYMPHOCYTES PERCENT AUTO 29.8 % (24.0-44.0); MEAN CORPUSCULAR HEMOGLOBIN 31.8 pg (28.0-32.0); MEAN CORPUSCULAR VOLUME 93.4 fL (83.0-99.0); MEAN PLATELET VOLUME 10.1 fL (9.4-12.3); MONOCYTES ABSOLUTE AUTO 0.94 K/uL (0.00-0.80); MONOCYTES PERCENT AUTO 8.2 % (0.0-8.0); NEUTROPHILS ABSOLUTE AUTO 6.83 K/uL (1.80-7.70); NEUTROPHILS PERCENT AUTO 59.6 % (41.0-71.0); PLATELET COUNT,PLT 400 K/uL (150-400); RED BLOOD CELL COUNT 4.22 M/uL (4.10-5.30); WHITE BLOOD CELL COUNT,WBC 11.46 K/uL (3.9-11.3)
[2023-09-10 14:49] LABS: A/G RATIO 0.9 (0.9-1.6); ALBUMIN 3.7 g/dL (3.4-5.0); BILIRUBIN TOTAL 0.3 mg/dL (0.2-1.0); CALCIUM 9.7 mg/dL (8.5-10.1); CARBON DIOXIDE,CO2 26.3 mmol/L (21.0-32.0); CREATININE 0.9 mg/dL (0.6-1.0); EST CRCL DRUG DOSING (CG) 61.45 mL/min; POTASSIUM,K 4.6 mmol/L (3.5-5.1); PROTEIN TOTAL,TP 7.7 g/dL (6.4-8.2)
[2023-09-10 16:12] LABS: BILIRUBIN,URINE NEGATIVE (NEGATIVE); COLOR,URINE YELLOW; GLUCOSE,URINE NEGATIVE (NEGATIVE); KETONES,URINE NEGATIVE (NEGATIVE); LEUKOCYTE ESTERASE,URINE NEGATIVE (NEGATIVE); NITRITE,URINE NEGATIVE (NEGATIVE); OCCULT BLOOD,URINE NEGATIVE (NEGATIVE); PH,URINE 7.5 (5.0-8.0); PROTEIN,URINE NEGATIVE (NEGATIVE); UROBILINOGEN,URINE 0.2 EU/dL (<2.0)
[2023-09-10 16:17] LABS: APPEARANCE,URINE HAZY
[2023-09-10 16:39] VITALS: BP 105/69; PULSE 76
== END 2023-09-10 16:30 | disposition home or self-care (01) ==
LOC: MW.ED 13:10
DX: R10.31 Right lower quadrant pain (principal); Z88.1 Allergy status to other antibiotic agents; Z88.5 Allergy status to narcotic agent; Z91.048 Other nonmedicinal substance allergy status; Z88.2 Allergy status to sulfonamides; Z88.8 Allergy status to other drugs, medicaments and biological substances; Z90.49 Acquired absence of other specified parts of digestive tract
CPT/HCPCS: 36415; 74177; 80053; 81003; 83690; 85025; 96360; 96361; 99284; J7030

== ENCOUNTER 2024-04-21 13:58 | Emergency (ER) | payer MEDICAID ==
[2024-04-21] MEDS: Amoxicillin/Clavulanate K 875-125 MG Tab PO ONE (14:44)
[2024-04-21] MEDS: Lidocaine 2% Viscous Solution 15 ML UD PO ONE (14:44)
[2024-04-21] MEDS: Benzocaine 20% Topical Spray UD MUCMEM ONE (14:44)
[2024-04-21] MEDS: Ibuprofen 800 MG Tab PO ONE (14:44)
[2024-04-21 14:47] VITALS: BP 117/74; PULSE 77
== END 2024-04-21 14:46 | disposition home or self-care (01) ==
LOC: MW.ED 13:58
DX: K08.89 Other specified disorders of teeth and supporting structures (principal); E78.00 Pure hypercholesterolemia, unspecified; F17.210 Nicotine dependence, cigarettes, uncomplicated; Z75.8 Other problems related to medical facilities and other health care; Z88.1 Allergy status to other antibiotic agents; Z88.5 Allergy status to narcotic agent; Z91.048 Other nonmedicinal substance allergy status; Z88.2 Allergy status to sulfonamides; Z88.8 Allergy status to other drugs, medicaments and biological substances; Z79.899 Other long term (current) drug therapy; Z90.49 Acquired absence of other specified parts of digestive tract
CPT/HCPCS: 99282; A9270; 99283

== ENCOUNTER 2024-05-03 10:47 | Emergency (ER) | payer MEDICAID ==
[2024-05-03 11:20] VITALS: BP 104/67; PULSE 77
== END 2024-05-03 11:44 | disposition left against medical advice (07) ==
LOC: MW.ED 10:47
DX: Z53.21 Procedure and treatment not carried out due to patient leaving prior to being seen by health care provider (principal)

== ENCOUNTER 2024-10-03 21:21 | Emergency (ER) | payer BC ==
[2024-10-03] MEDS ORDERED: Sodium Chloride 0.9% 10 ML Syringe FLUSH PRN (22:56)
[2024-10-03] MEDS ORDERED: Sodium Chloride 0.9% 2.5 ML Syringe FLUSH PRN (22:56)
[2024-10-03] MEDS ORDERED: Sodium Chloride 0.9% 20 ML SDV IV PRN (22:56)
[2024-10-03 23:24] LABS: BASOPHILS ABSOLUTE AUTO 0.06 K/uL (0.00-0.20); BASOPHILS PERCENT AUTO 0.5 % (0.0-1.0); EOSINOPHILS ABSOLUTE AUTO 0.29 K/uL (0.00-0.45); EOSINOPHILS PERCENT AUTO 2.5 % (0.0-6.0); HEMATOCRIT 36.5 % (37.0-47.0); HEMOGLOBIN 12.7 g/dL (12.0-16.0); IMMATURE GRAN ABSOLUTE AUTO 0.02 K/uL (0.00-0.05); IMMATURE GRAN PERCENT AUTO 0.2 % (0.0-0.4); LYMPHOCYTES ABSOLUTE AUTO 4.61 K/uL (1.00-4.80); LYMPHOCYTES PERCENT AUTO 39.6 % (24.0-44.0); MEAN CORPUSCULAR HEMOGLOBIN 31.1 pg (28.0-32.0); MEAN CORPUSCULAR HGB CONC 34.8 g/dL (32.0-36.0); MEAN CORPUSCULAR VOLUME 89.2 fL (83.0-99.0); MEAN PLATELET VOLUME 10.3 fL (9.4-12.3); MONOCYTES ABSOLUTE AUTO 1.21 K/uL (0.00-0.80); MONOCYTES PERCENT AUTO 10.4 % (0.0-8.0); NEUTROPHILS ABSOLUTE AUTO 5.45 K/uL (1.80-7.70); NEUTROPHILS PERCENT AUTO 46.8 % (41.0-71.0); PLATELET COUNT,PLT 352 K/uL (150-400); RED BLOOD CELL COUNT 4.09 M/uL (4.10-5.30); WHITE BLOOD CELL COUNT,WBC 11.64 K/uL (3.9-11.3)
[2024-10-03 23:40] LABS: ALANINE AMINOTRANSFERASE,ALT 26 IU/L (14-63); ALBUMIN 3.6 g/dL (3.4-5.0); ALKALINE PHOSPHATASE 114 U/L (46-116); ASPARTATE AMNIOTRANSFERASE,AST 17 IU/L (15-37); BILIRUBIN TOTAL 0.3 mg/dL (0.2-1.0); BLOOD UREA NITROGEN,BUN 11 mg/dL (7.0-18.0); CALCIUM 9.2 mg/dL (8.5-10.1); CARBON DIOXIDE,CO2 25.6 mmol/L (21.0-32.0); CHLORIDE,CL 101 mmol/L (98-107); CREATININE 0.9 mg/dL (0.6-1.0); EST CRCL DRUG DOSING (CG) 60.82 mL/min; GLUCOSE RANDOM 85 mg/dL (74-106); MAGNESIUM 1.7 mg/dL (1.8-2.4); POTASSIUM,K 4.3 mmol/L (3.5-5.1); PROTEIN TOTAL,TP 7.3 g/dL (6.4-8.2); SODIUM,NA 138 mmol/L (136-145)
[2024-10-03 23:52] LABS: ESTIMATED GFR 81 mL/min (>60)
[2024-10-04 00:46] VITALS: BP 120/73; PULSE 89
== END 2024-10-04 00:44 | disposition home or self-care (01) ==
LOC: MW.ED 21:21
DX: M77.8 Other enthesopathies, not elsewhere classified (principal); R20.2 Paresthesia of skin; J45.909 Unspecified asthma, uncomplicated; F17.210 Nicotine dependence, cigarettes, uncomplicated; Z90.49 Acquired absence of other specified parts of digestive tract; Z88.2 Allergy status to sulfonamides; Z88.5 Allergy status to narcotic agent; Z88.8 Allergy status to other drugs, medicaments and biological substances; Z79.899 Other long term (current) drug therapy; Z75.8 Other problems related to medical facilities and other health care
CPT/HCPCS: 36415; 70450; 70450-26; 80053; 83735; 84484; 85025; 99284

== ENCOUNTER 2024-11-08 20:08 | Emergency (ER) | payer BC ==
[2024-11-08 20:28] VITALS: PULSE 78
[2024-11-08] MEDS: Clindamycin HCl 150 MG Cap PO ONE (20:59)
[2024-11-08 21:01] VITALS: BP 114/73
== END 2024-11-08 21:24 | disposition home or self-care (01) ==
LOC: MW.ED 20:08
DX: K08.89 Other specified disorders of teeth and supporting structures (principal); F17.210 Nicotine dependence, cigarettes, uncomplicated; Z90.49 Acquired absence of other specified parts of digestive tract; Z79.899 Other long term (current) drug therapy; Z88.2 Allergy status to sulfonamides; Z88.1 Allergy status to other antibiotic agents; Z88.5 Allergy status to narcotic agent; Z88.8 Allergy status to other drugs, medicaments and biological substances
CPT/HCPCS: 99283; A9270